=== PATIENT | male | born 1945 | race Caucasian/White ===

== ENCOUNTER 2022-05-11 13:45 | Emergency (ER) | payer OTHER ==
--- OUTSIDE RECORDS SUMMARY | 2022-05-11 13:49 | XMS REPORT | Continuity of Care Document ---
:1945 Author Organization [facility] t Address [address] [place] [address] Care Team Providers Name Role Phone MANJEET RAMIREZ Attending Clinician Unavailable TELLY Attending Clinician Unavailable TELLY Admitting Clinician Unavailable Payers Payer Name Policy Type Policy Number Effective Date Expiration Date S ource MEDICARE B-[place]: [id number] 2011 [employer] 00:00:00 [employer]ET[employer] [id number] 2002 00:00:00 Problems Condition Condition Condition Status Onset Resolution Last Treating Co mments Source Name Details Category Date Date Treatment Clinician Date Hypertensi Hypertensi Problem Active 2021-06 [place] ve ve 0-03 Communi disorder Disorder 00:00: ty 00 [facility] Peripheral Peripheral Problem Active 2021-06 [place] vascular Vascular 0-03 Commun i disease Disease 00:00: ty 00 [facility] Arthritis Arthritis Problem Active 2021-06 Swe garrett 0-03 Communi 00:00: ty 00 [facility] Osteoporos Osteoporos Problem Active 2021-06 [place] is is 0-03 Communi 00:00: ty 00 [facility] Sleep Sleep Problem Active 2021-06 [place] apnea Apnea 0-03 Communi 00:00: ty 00 [facility] Heart Heart Problem Active 2021-06 [place] murmur Murmur 0-03 Communi 00:00: ty 00 [facility] History of History of Problem Active 2021-06 [place] deep vein Deep Vein 0-03 Comm uni thrombosis Thrombosis 00:00: ty 00 [facility] Hyperchole Hyperchole Problem Active 2021-06 S c[place] sterolemia sterolemia 0-03 Co mmuni 00:00: ty 00 [facility] Erectile Erectile Problem Active 2021-06 [place] dysfunctio Dysfunctio 0-03 Co mmuni n n 00:00: ty 00 [facility] Chronic Chronic Problem Active 2021-06 [place] pain Pain 0-03 Communi syndrome Syndrome 00:00: ty 00 [facility] History of History of Problem Active [place] SARS-CoV-2 SARS-CoV-2 9-05 Co mmuni 00:00: ty 00 [facility] Body mass Body Mass Problem Active [place] index 40+ Index 40+ 1-05 Comm uni - severely - Severely 00:00: ty obese Obese 00 [facility] Benign Benign Problem Active [place] prostatic Prostatic 7-14 Comm uni hyperplasi Hyperplasi 00:00: ty a a 00 [facility] Carcinoma Carcinoma Problem Active [place] of of 3-23 Communi prostate Prostate 00:00: ty 00 [facility] Raised Raised Problem Active 2019-06 [place] prostate Prostate 1-09 Commun i specific Specific 00:00: ty antigen Antigen 00 [facility] [id number] Other Problem Common synovitis Spirit and - [facility]osyn[facility] ankle [facility] foot [facility] [id number] Cancer of Problem Comm on prostate Spirit with - [facility] recurrence Medica l risk Center (stage T2b-c or Jennifer 7 or PSA 10-20) [id number] BPH loc w Problem Com mon urin Spirit obs/LUTS - [facility] [id number] Prostate Problem Comm on cancer [facility] [id number] 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 Social History Social Habit Start Date Stop Date Quantity Comments Source History of Tobacco Use Co mmon [facility] Sex Assigned At Com [facility] Smoking Status Start Date Stop Date Source Former Smoker 2022-04-16 00:00:00 2022-04-16 00:00:00 Common S pirit - [facility] Medications Ordered Filled Start Stop Current Ordering Indication Dosage Frequency Signature Comments Components Source Medication Medication Date Date Medication? Clinician (SIG) Name Name Colestipol Colestipol No Colestipol HCl HCl HCl Simvastatin Simvastatin No Simvastati n azelastine azelastine No azelastine [place] 137 mcg 137 mcg 137 mcg Commun i (0.1 %) (0.1 %) (0.1 %) ty nasal spray nasal spray nasal Hospita aerosol aerosol spray l SPRAY 1 SPRAY 1 aerosol Clinic s SPRAYS (137 SPRAYS (137 SPRAY 1 MCG) IN MCG) IN SPRAYS EACH EACH (137 MCG) NOSTRIL BY NOSTRIL BY IN EACH INTRANASAL INTRANASAL NOSTRIL BY ROUTE ONCE ROUTE ONCE INTRANASAL DAILY DAILY ROUTE ONCE NEEDED NEEDED DAILY NEEDED colestipol colestipol No colestipol [place] 1 gram 1 gram 1 gram Communi tablet TAKE tablet TAKE tablet ty 2 TABLETS 2 TABLETS TAKE 2 Hos truong (2 GRAM) BY (2 GRAM) BY TABLETS (2 l ORAL ROUTE ORAL ROUTE GRAM) BY Clinics ONCE PER ONCE PER ORAL ROUTE DAY DAY ONCE PER SWALLOWING SWALLOWING DAY WHOLE WITH WHOLE WITH SWALLOWING ANY LIQUID. ANY LIQUID. WHOLE WITH DO NOT DO NOT ANY CRUSH, CHEW CRUSH, CHEW LIQUID. DO AND/OR AND/OR NOT CRUSH, DIVIDE TO DIVIDE TO CHEW HELP HELP AND/OR CONTROL CONTROL DIVIDE TO BOWELS BOWELS HELP CONTROL BOWELS losartan losartan No 1 Q1D losartan [place] 100 100 100 Communi mg-hydrochl mg-hydrochl mg-hydroch ty orothiazide orothiazide [facility]iazi Hospita 12.5 mg 12.5 mg de 12.5 mg l tablet Take tablet Take tablet Clinics 1 tablet 1 tablet Take 1 every day every day tablet by oral by oral every day route. route. by oral route. meloxicam meloxicam No 1 Q1D meloxicam [place] 15 mg 15 mg 15 mg Communi tablet Take tablet Take tablet ty 1 tablet 1 tablet Take 1 Hospi ta every day every day tablet l by oral by oral every day Clin ics route. route. by oral route. simvastatin simvastatin No 1 Q1D simvastati [place] 40 mg 40 mg n 40 mg Communi tablet Take tablet Take tablet ty 1 tablet 1 tablet Take 1 Hospi ta every day every day tablet l by oral by oral every day Clin ics route in route in by oral the the route in evening. evening. the evening. trazodone trazodone No 1 Q1D trazodone [place] 50 mg 50 mg 50 mg Communi tablet Take tablet Take tablet ty 1 tablet 1 tablet Take 1 Hospi ta every day every day tablet l by oral by oral every day Clin ics route as route as by oral directed. directed. route as directed. azelastine azelastine No azelastine [place] 137 mcg 137 mcg 137 mcg Commun i (0.1 %) (0.1 %) (0.1 %) ty nasal spray nasal spray nasal Hospita aerosol aerosol spray l SPRAY 1 SPRAY 1 aerosol Clinic s SPRAYS (137 SPRAYS (137 SPRAY 1 MCG) IN MCG) IN SPRAYS EACH EACH (137 MCG) NOSTRIL BY NOSTRIL BY IN EACH INTRANASAL INTRANASAL NOSTRIL BY ROUTE ONCE ROUTE ONCE INTRANASAL DAILY DAILY ROUTE ONCE NEEDED NEEDED DAILY NEEDED colestipol colestipol No colestipol [place] 1 gram 1 gram 1 gram Communi tablet TAKE tablet TAKE tablet ty 2 TABLETS 2 TABLETS TAKE 2 Hos truong (2 GRAM) BY (2 GRAM) BY TABLETS (2 l ORAL ROUTE ORAL ROUTE GRAM) BY Clinics ONCE PER ONCE PER ORAL ROUTE DAY DAY ONCE PER SWALLOWING SWALLOWING DAY WHOLE WITH WHOLE WITH SWALLOWING ANY LIQUID. ANY LIQUID. WHOLE WITH DO NOT DO NOT ANY CRUSH, CHEW CRUSH, CHEW LIQUID. DO AND/OR AND/OR NOT CRUSH, DIVIDE TO DIVIDE TO CHEW HELP HELP AND/OR CONTROL CONTROL DIVIDE TO BOWELS BOWELS HELP CONTROL BOWELS losartan losartan No 1 Q1D losartan [place] 100 100 100 Communi mg-hydrochl mg-hydrochl mg-hydroch ty orothiazide orothiazide [facility] 12.5 mg 12.5 mg de 12.5 mg l tablet Take tablet Take tablet Clinics 1 tablet 1 tablet Take 1 every day every day tablet by oral by oral every day route. route. by oral route. meloxicam meloxicam No 1 Q1D meloxicam [place] 15 mg 15 mg 15 mg Communi tablet Take tablet Take tablet ty 1 tablet 1 tablet Take 1 Hospi ta every day every day tablet l by oral by oral every day Clin ics route. route. by oral route. simvastatin simvastatin No 1 Q1D simvastati [place] 40 mg 40 mg n 40 mg Communi tablet Take tablet Take tablet ty 1 tablet 1 tablet Take 1 Hospi ta every day every day tablet l by oral by oral every day Clin ics route in route in by oral the the route in evening. evening. the evening. trazodone trazodone No 1 Q1D trazodone [place] 50 mg 50 mg 50 mg Communi tablet Take tablet Take tablet ty 1 tablet 1 tablet Take 1 Hospi ta every day every day tablet l by oral by oral every day Clin ics route as route as by oral directed. directed. route as directed. cephalexin cephalexin No 1capsul BID cephalexin [place] 500 mg 500 mg e(s) 500 mg Communi capsule capsule capsule ty Take 1 Take 1 Take 1 Hospita capsule capsule capsule l twice a day twice a day twice a Clinics by oral by oral day by route. route. oral route. colestipol colestipol No colestipol [place] 1 gram 1 gram 1 gram Communi tablet TAKE tablet TAKE tablet ty 2 TABLETS 2 TABLETS TAKE 2 Hos truong (2 G TOTAL) (2 G TOTAL) TABLETS (2 l BY MOUTH BY MOUTH G TOTAL) Cli nics DAILY TO DAILY TO BY MOUTH HELP HELP DAILY TO CONTROL CONTROL HELP BOWELS. BOWELS. CONTROL BOWELS. Turmeric Turmeric No Turmeric hydrocodone hydrocodone No hydrocodon [place] 10 10 e 10 Communi mg-acetamin mg-acetamin mg-acetami ty ophen 325 ophen 325 nophen 325 Hospita mg tablet mg tablet mg tablet l Take 1 Take 1 Take 1 Clinics tablet tablet tablet daily by daily by daily by mouth mouth mouth losartan losartan No 1 Q1D losartan [place] 100 100 100 Communi mg-hydrochl mg-hydrochl mg-hydroch ty orothiazide orothiazide [facility] 12.5 mg 12.5 mg de 12.5 mg l tablet Take tablet Take tablet Clinics 1 tablet 1 tablet Take 1 every day every day tablet by oral by oral every day route. route. by oral route. simvastatin simvastatin No 1 Q1D simvastati [place] 40 mg 40 mg n 40 mg Communi tablet Take tablet Take tablet ty 1 tablet 1 tablet Take 1 Hospi ta every day every day tablet l by oral by oral every day Clin ics route in route in by oral the the route in evening. evening. the evening. trazodone trazodone No 1 Q1D trazodone [place] 50 mg 50 mg 50 mg Communi tablet Take tablet Take tablet ty 1 tablet 1 tablet Take 1 Hospi ta every day every day tablet l by oral by oral every day Clin ics route as route as by oral directed. directed. route as directed. losartan losartan No losartan traZODone traZODone No traZODone HCl HCl HCl Vital Signs Vital Name Observation Time Observation Value Comments Source BP Diastolic 2022-04-17 00:00:00 80 mm[Hg] [facility] s Height 2022-04-17 00:00:00 73 [in_i] [facility] s BMI (Body Mass 2022-04-17 00:00:00 37.7 kg/m2 [facility] s BP Systolic 2022-04-17 00:00:00 124 mm[Hg] [facility] s Body Weight 2022-04-17 00:00:00 4576 [oz_av] [facility] s height 2022-04-16 15:00:00 71 [in_i] [facility] weight 2022-04-16 15:00:00 280 [lb_av] [facility] temperature 2022-04-16 15:00:00 97.6 [degF] [facility] bmi 2022-04-16 15:00:00 39.05 kg/m2 [facility] oximetry 2022-04-16 15:00:00 96 % [facility] respiratory rate 2022-04-16 15:00:00 18 /min Comm on [facility] blood pressure 2022-04-16 15:00:00 139 mm[Hg] [facility] - systolic [facility] blood pressure 2022-04-16 15:00:00 88 mm[Hg] [facility] - diastolic [facility] BP Diastolic 2022-03-17 00:00:00 78 mm[Hg] [facility] s Height 2022-03-17 00:00:00 73 [in_i] [facility] s BMI (Body Mass 2022-03-17 00:00:00 39.8 kg/m2 [facility] Index) [facility] s BP Systolic 2022-03-17 00:00:00 142 mm[Hg] [facility] s Body Weight 2022-03-17 00:00:00 4824 [oz_av] [facility] s Procedures Procedure Date / Time Performed Performing Clinician Sour e Appendectomy [facility] Hemorrhoidectomy [facility] Total Knee Replacement [facility] Tonsillectomy [facility] Vasectomy [facility] Plan of Care Planned Activity Planned Date Details Comments Source Diagnostic Test 2022-03-17 CMP, serum or [place] Comm unity Pending 00:00:00 plasma [code = Hospital Clin ics CMP, serum or plasma] Diagnostic Test 2022-03-17 CBC w/ auto diff [facility] Pending 00:00:00 [code = CBC w/ Hospital Clin ics auto diff] Diagnostic Test 2022-03-17 lipid panel, [place] Commu nity Pending 00:00:00 serum [facility], [facility]] Diagnostic Test 2022-03-17 HbA1c (hemoglobin [facility] Pending 00:00:00 A1c), blood [code Hospital linics = HbA1c (hemoglobin A1c), blood] Diagnostic Test 2022-03-17 TSH, serum or [place] Comm unity Pending 00:00:00 plasma [code = Hospital Clin ics TSH, serum or plasma] Future Appointment 2022-06-17 Venkat Lakhani [facility] 00:00:00 Brianna Walters; [place] [address] Encounters Start End Encounter Admission Attending Care Care Encounter Source Date/Time Date/Time Type Type Clinicians Facility Department ID 2022-04-16 Outpatient ELIOT RAMIREZ [facility] [id number] Common 14:36:03 MANJEET Kerns02 [facility] - [facility] 2022-05-11 2022-05-11 Outpatient ERICKSON_R [facility] [address] [place] 00:00:00 00:00:00 [id number] [facility] i [facility] Clin[facility] 2022-04-17 2022-04-17 Outpatient ERICKSON_R [facility] [address] [place] 00:00:00 00:00:00 1103 Commun i ty Hospita l Clinics 2022-04-17 2022-04-17 Manjeet [facility] [place] - [place] [id number] [place] 00:00:00 00:00:00 [facility] - ty DO: [address] [facility] [place], [place] CLINIC, [address] JAMES , Ph. [phone] 2022-04-16 2022-04-16 [facility] [id number] Co mmon 00:00:00 00:00:00 VISIT NEW [facility] it PT LEVEL 3 - [facility] 2022-03-21 2022-03-21 Outpatient ERICKSON_R [facility] [address] [place] 00:00:00 00:00:00 1007 Commun i ty Hospita l Clinics 2022-03-18 2022-03-18 Outpatient ERICKSON_R [facility] [address] [place] 00:00:00 00:00:00 1004 Commun i ty Hospita l Clinics 2022-03-17 2022-03-17 Outpatient ERICKSON_R [facility] [id number] [place] 00:00:00 00:00:00 1003 Commun i ty Hospita l Clinics 2022-03-17 2022-03-17 Manjeet [facility] [place] 00:00:00 00:00:00 [facility] - ty DO: [address] [facility] [place], [place] CLINIC, [address] JAMES , Ph. [phone] Results This patient has no known results.
[2022-05-11 14:38] LABS: Absolute Lymphocytes (CBC) 1.7 K/uL (0.7-4.9); Hematocrit 44.6 % (39.6-49.0); MCV 92.9 fL (80-100); MPV 7.1 fL (7.6-11.3)
[2022-05-11 14:57] LABS: Potassium 3.2 mmol/L (3.5-5.1); Troponin High Sensitivity 27.5 pg/mL (<58.9)
[2022-05-11 15:27] LABS: SARS-COV-2 RT PCR NEGATIVE (NEGATIVE)
--- NOTE | 2022-05-11 16:04 | RAD REPORT ---
EXAM DESCRIPTION: USExtrem Venous W Compress Bil05/11/2022 2:44 pm CLINICAL HISTORY: Leg pain COMPARISON: May 07, 2022 FINDINGS: Echogenic material consistent with thrombus is present within the mid right superficial fe moral vein. The remainder of the right lower extremity deep veins are patent Echogenic material consistent with thrombus is present throughout the left common femoral, left super ficial femoral, left popliteal and left posterior tibial veins. No significant change since prior ult rasound Left greater saphenous vein patent Grayscale, color and spectral analysis performed on all vessels IMPRESSION: Extensive acute left lower extremity deep veinous thrombosis Small amount of acute thrombus mid right superficial femoral vein
--- NOTE | 2022-05-11 16:05 | RAD REPORT ---
EXAM DESCRIPTION: Shaunna Single View05/11/2022 2:52 pm CLINICAL HISTORY: Fever COMPARISON: none FINDINGS: The lungs appear clear of acute infiltrate. The heart appears borderline enlarged IMPRESSION: No acute abnormalities displayed
[2022-05-11 17:01] LABS: Urine Blood Negative (Negative); Urine Glucose Negative (Negative); Urine Protein Negative (Negative)
--- NOTE | 2022-05-11 17:14 | EDPHYS ---
Physician Documentation [facility] Name: Tomas Delaney Age: 77 yrs Sex: Male : 1945 Arrival Date: 05/11/2022 Time: 13:47 Bed 6 Private MD: ED Physician Hammad Fields HPI: 05/11 14:01 This 77 yrs old Male presents to ER via Ambulatory with complaints of Change in jmm symptoms with DVT. Low grade fever, redness in chest/face, irregular heart rate. 14:01 This is a 77-year-old male with a history of atrial fibrillation, hyperlipidemia, jmm hypertension the presents emerged department with complaints of increased fatigue, dizziness approximately a day ago. states that the patient awoke with night sweats. Patient states having some mild left lower quadrant abdominal pain. Patient was also recently diagnosed with a DVT in the left leg. Denies chest pain or shortness of breath, denies back pain.. Historical: - Allergies: 14:00 No Known Allergies; kb3 - PMHx: 14:00 Atrial fibrillation; DVT; Hypercholesterolemia; Hypertensive disorder; IBS; Prostate CA;kb3 - Immunization history:: Adult Immunizations up to date, Client reports receiving the 2nd dose of the Covid vaccine, Last tetanus immunization: up to date. - Social history:: Smoking status: Patient denies any tobacco usage or history of. ROS: 14:01 Cardiovascular: Negative for chest pain, palpitations, and edema. jmm 14:01 Respiratory: Negative for shortness of breath, cough, wheezing, and pleuritic chest pain. 14:01 Constitutional: Positive for body aches, chills, fatigue, fever. 14:01 Abdomen/GI: Positive for abdominal pain. 14:01 MS/extremity: Positive for pain. 14:01 All other systems are negative. Exam: 14:01 Constitutional: This is a well developed, well nourished patient who is awake, alert, jmm and in no acute distress. Head/Face: atraumatic. Eyes: EOMI, no conjunctival erythema appreciated ENT: Moist Mucus Membranes Neck: Trachea midline, Supple Chest/axilla: Normal chest wall appearance and motion. Cardiovascular: Regular rate and rhythm. No edema appreciated Respiratory: Normal respirations, no respiratory distress appreciated Abdomen/GI: Non distended Back: Normal ROM Skin: General appearance color normal 14:01 Musculoskeletal/extremity: swelling noted to the lower extremites bilaterally, full dorsalis pulse, compartments are soft, NVI. 14:01 Skin: Appearance: Color: normal in color. 14:01 Neuro: Motor: is normal. 14:01 Psych: Behavior/mood is pleasant, cooperative. Vital Signs: 13:53 BP 150 / 69; Pulse 90; Resp 20; Temp 98.8; Pulse Ox 99% ; Weight 126.55 kg; Height 6 kb3 ft. 1 in. (185.42 cm); Pain 3/10; 17:28 BP 141 / 60; Pulse 69; Resp 18; Pulse Ox 99% ; ll1 13:53 Body Mass Index 36.81 (126.55 kg, 185.42 cm) kb3 MDM: 14:01 Patient medically screened. [facility] 17:12 Data reviewed: vital signs, nurses notes. Counseling: I had a detailed discussion with [facility] the patient and/or guardian regarding: the historical points, exam findings, and any diagnostic results supporting the discharge/admit diagnosis, the need for outpatient follow up, to return to the emergency department if symptoms worsen or persist or if there are any questions or concerns that arise at home. 05/11 14:01 Order name: Basic Metabolic Panel; Complete Time: 14:57 [facility] 05/11 14:01 Order name: CBC with Diff; Complete Time: 14:41 [facility] 05/11 14:01 Order name: Troponin HS; Complete Time: 14:57 [facility] 05/11 14:01 Order name: Lactate w/ 2H reflex if indic.; Complete Time: 15:05 [facility] 05/11 14:01 Order name: Blood Culture Adult (2) [facility] 05/11 14:30 Order name: COVID-19/FLU A+B; Complete Time: 15:31 [facility] 05/11 14:01 Order name: XRAY Chest (1 view); Complete Time: 16:06 [facility] 05/11 14:01 Order name: EKG; Complete Time: 14:01 [facility] 05/11 14:01 Order name: Cardiac monitoring; Complete Time: 14:29 [facility] 05/11 14:01 Order name: EKG - Nurse/Tech; Complete Time: 14:29 [facility] 05/11 14:01 Order name: IV Saline Lock; Complete Time: 14:29 [facility] 05/11 14:01 Order name: Labs collected and sent; Complete Time: 14:29 [facility] 05/11 14:02 Order name: US Extremity Venous W Compression Margarito; Complete Time: 16:06 [facility] 05/11 17:01 Order name: Urine Dipstick-Ancillary; Complete Time: 17:03 [facility] 05/11 14:01 Order name: O2 Per Protocol; Complete Time: 14:43 [facility] 05/11 14:01 Order name: O2 Sat Monitoring; Complete Time: 14:43 [facility] 05/11 14:30 Order name: Urine Dipstick-Ancillary (obtain specimen); Complete Time: 17:00 [facility] Administered Medications: No medications were administered Disposition: 17:12 Co-signature as Attending Physician, Hammad Fields DO I was immediately available on-site ms3 in the Emergency Department for consultation in the care of the patient. Disposition Summary: 05/11/22 17:13 Discharge Ordered Location: Home [facility] Condition: Stable [facility] Diagnosis - [place] jm Followup: [facility] - With: Private Physician - When: 2 - 3 days - Reason: Recheck today's complaints, Continuance of care, Re-evaluation by your physician Discharge Instructions: - Discharge Summary Sheet jm - Deep Vein Thrombosis [facility] Forms: - Medication Reconciliation Form [facility] - Thank You Letter [facility] - Antibiotic Education [facility] - Prescription Opioid Use [facility] Signatures: Dispatcher [employer] Maciej Copeland PA PA jmm Sims, Marcus, DO DO ms3 Claudine Griffin, RN RN kb3
--- NOTE | 2022-05-11 17:14 | ER ---
Nurse's Notes [facility] Name: Tomas Delaney Age: 77 yrs Sex: Male : 1945 Arrival Date: 05/11/2022 Time: 13:47 Bed 6 Private MD: Diagnosis: [place] Presentation: 05/11 13:53 Chief complaint: Patient states: Pt reports he was started on Eliquis by Dr Bishop on kb3 Wed for afib and a DVT was found in right leg. States he woke up this morning with bilateral lower leg pain, felt dizzy and fatigued, flushed with a low-grade temp, and LLQ abdominal pain at 12:00 that has resolved. Coronavirus screen: Vaccine status: Patient reports receiving the 2nd dose of the covid vaccine. Client denies travel out of the [place] in the last 14 days. Ebola Screen: Patient negative for fever greater than or equal to 101.5 degrees Fahrenheit, and additional compatible Ebola Virus Disease symptoms Patient denies exposure to infectious person. Patient denies travel to an Ebola-affected area in the 21 days before illness onset. Initial Sepsis Screen: Does the patient meet any 2 criteria? No. Patient's initial sepsis screen is negative. Does the patient have a suspected source of infection? No. Patient's initial sepsis screen is negative. Risk Assessment: Do you want to hurt yourself or someone else? Patient reports no desire to harm self or others. Onset of symptoms was May 11, 2022 at 08:00. 13:53 Method Of Arrival: Ambulatory 3 13:53 Acuity: CONNOR 3 kb3 Triage Assessment: 14:00 General: Appears in no apparent distress. Behavior is calm, cooperative. Pain: kb3 Complains of pain in lateral aspect of right calf, right calf, medial aspect of right calf, right shah, lateral aspect of left calf, left calf, medial aspect of left calf and left shah Pain does not radiate. Pain currently is 3 out of 10 on a pain scale. Historical: - Allergies: 14:00 No Known Allergies; kb3 - PMHx: 14:00 Atrial fibrillation; DVT; Hypercholesterolemia; Hypertensive disorder; IBS; Prostate CA;kb3 - Immunization history:: Adult Immunizations up to date, Client reports receiving the 2nd dose of the Covid vaccine, Last tetanus immunization: up to date. - Social history:: Smoking status: Patient denies any tobacco usage or history of. Screenin:44 Abuse screen: Denies threats or abuse. Nutritional screening: No deficits noted. ll1 Tuberculosis screening: No symptoms or risk factors identified. Fall Risk IV access (20 points). Gait- Impaired (20 pts.). Total Avilez Fall Scale indicates Low Risk Score (25-44 pts). Fall prevention measures have been instituted. Side Rails Up X 2 Placed close to Nursing Station Frequent Obs/Assesments occuring Family Present and informed to notify staff if they need to leave bedside As available Patient and Family Educated on Fall Prevention Program and strategies. Assessment: 14:43 Reassessment: No changes from previously documented assessment. Patient and/or family ll1 updated on plan of care and expected duration. Pain level reassessed. Patient is alert, oriented x 3, equal unlabored respirations, skin warm/dry/pink. 15:40 Reassessment: No changes from previously documented assessment. ll1 16:35 Reassessment: No changes from previously documented assessment. Patient and/or family ll1 updated on plan of care and expected duration. Pain level reassessed. 17:27 Reassessment: No changes from previously documented assessment. Patient and/or family ll1 updated on plan of care and expected duration. Pain level reassessed. Patient is alert, oriented x 3, equal unlabored respirations, skin warm/dry/pink. Vital Signs: 13:53 BP 150 / 69; Pulse 90; Resp 20; Temp 98.8; Pulse Ox 99% ; Weight 126.55 kg; Height 6 kb3 ft. 1 in. (185.42 cm); Pain 3/10; 17:28 BP 141 / 60; Pulse 69; Resp 18; Pulse Ox 99% ; ll1 13:53 Body Mass Index 36.81 (126.55 kg, 185.42 cm) kb3 ED Course: 13:47 Patient arrived in ED. jl7 13:47 Maciej Fragoso PA is PHCP. [facility] 13:47 Hammad Fields DO is Attending Physician. jmm 14:00 Triage completed. kb3 14:00 Arm band placed on right wrist. kb3 14:25 Inserted saline lock: 22 gauge in left antecubital area, using aseptic technique. Blood ll1 collected. 14:29 Lactate w/ 2H reflex if indic. Sent. ll1 14:46 US Extremity Venous W Compression Margarito In Process Unspecified. EDMS 14:49 Juma Elliott, RN is Primary Nurse. ll1 14:53 XRAY Chest (1 view) In Process Unspecified. EDMS 15:16 COVID-19/FLU A+B Sent. ll1 17:28 No provider procedures requiring assistance completed. IV discontinued, intact, ll1 bleeding controlled, No redness/swelling at site. Pressure dressing applied. 17:29 Patient has correct armband on for positive identification. Bed in low position. Call ll1 light in reach. Side rails up X2. Cardiac monitoring not applicable on this patient. Administered Medications: No medications were administered Medication: 14:44 VIS not applicable for this client. 1 Outcome: 17:13 Discharge ordered by . [facility] 17:29 Discharged to home via wheelchair. ll1 17:29 Condition: stable 17:29 Discharge instructions given to patient, family, Instructed on discharge instructions, follow up and referral plans. Demonstrated understanding of instructions, follow-up care. 17:29 Patient left the ED. 1 Signatures: Dispatcher [employer] EDMS Maciej Fragoso PA PA jmm Leal, Jahala, RN RN jl7 Juma Elliott, RN RN ll1 Claudine Griffin, RN RN kb3
[2022-05-11 17:45] VITALS: TEMP 98.8; O2SAT 99
[2022-05-11 17:55] VITALS: BP 141/60
--- NOTE | 2022-05-12 12:50 | EKG ---
Test Date: 2022-05-11 Test Time: 14:38:46 Hydrographic Surveyor: LML MEASUREMENT RESULTS: Intervals: Rate: 82 [place]: QRSD: 158 QT: 436 QTc: 509 [place]: P: [place]: QRS: -30 T: 41 INTERPRETIVE STATEMENTS: Atrial fibrillation Left axis deviation Nonspecific intraventricular block Abnormal ECG Compared to ECG 02/24/2013 18:11:59 Sinus rhythm no longer present First degree AV block no longer present Intraventricular conduction delay no longer present Electronically Signed On 05-12-22 12:49:05 LAST MODEL DEPARTMENT SUPERVISOR by Graham Maria
== END 2022-05-11 17:29 | disposition home or self-care (01) ==
LOC: ER 13:45
DX: R23.2 Flushing (principal); I10 Essential (primary) hypertension; I48.91 Unspecified atrial fibrillation; Z79.01 Long term (current) use of anticoagulants; Z86.718 Personal history of other venous thrombosis and embolism; Z85.46 Personal history of malignant neoplasm of prostate; Z20.822 Contact with and (suspected) exposure to COVID-19
CPT/HCPCS: 93005; 87040; 85025; 80048; 36415; 83605; 81003; 84484; 0240U; 71045; 93970; 99283

== ENCOUNTER 2022-08-03 08:38 | Emergency (ER) | payer OTHER ==
--- OUTSIDE RECORDS SUMMARY | 2022-08-03 08:42 | XMS REPORT | Continuity of Care Document ---
:1945 Author Organization [facility] t Address [address] [place] [address] Care Team Providers Name Role Phone MANJEET RAMIREZ Attending Clinician Unavailable TELLY Attending Clinician Unavailable TELLY Admitting Clinician Unavailable Payers Payer Name Policy Type Policy Number Effective Date Expiration Date Cedric franklin FRANCISCO (PPO) [id number] 2022 00:00:00 MEDICARE [place]: [id number] 2011 langtaojin 00:00:00 AETNA [id number] 2002 00:00:00 Problems Condition Condition Condition Status Onset Resolution Last Treating Co mments Source Name Details Category Date Date Treatment Clinician Date Atrial Atrial Problem Active 2021-06 [facility] fibrillati Fibrillati 1-29 Co mmuni on on 00:00: ty 00 [facility] Hypertensi Hypertensi Problem Active 2021-06 S weeny ve ve 0-03 Communi disorder Disorder 00:00: ty 00 [facility] Peripheral Peripheral Problem Active 2021-06 S [facility]en[facility] vascular Vascular 0-03 Commun i disease Disease 00:00: ty 00 [facility] Arthritis Arthritis Problem Active 2021-06 Swe garrett 0-03 Communi 00:00: ty 00 [facility] Osteoporos Osteoporos Problem Active 2021-06 S ween[facility] is is 0-03 Communi 00:00: ty 00 [facility] Sleep Sleep Problem Active 2021-06 [facility] apnea Apnea 0-03 Communi 00:00: ty 00 [facility] Heart Heart Problem Active 2021-06 [place] murmur Murmur 0-03 Communi 00:00: ty 00 [facility] History of History of Problem Active 2021-06 S weencristopher deep vein Deep Vein 0-03 Comm uni thrombosis Thrombosis 00:00: ty 00 [facility] Hyperchole Hyperchole Problem Active 2021-06 S [facility]en[facility] sterolemia sterolemia 0-03 Co mmuni 00:00: ty 00 [facility] Erectile Erectile Problem Active 2021-06 Sween y dysfunctio Dysfunctio 0-03 Co mmuni n n 00:00: ty 00 [facility] Chronic Chronic Problem Active 2021-06 [facility] pain Pain 0-03 Communi syndrome Syndrome 00:00: ty 00 [facility] History of History of Problem Active S weeny SARS-CoV-2 SARS-CoV-2 9-05 Co mmuni 00:00: ty 00 [facility] Body mass Body Mass Problem Active Swe garrett index 40+ Index 40+ 1-05 Comm uni - severely - Severely 00:00: ty obese Obese 00 [facility] Benign Benign Problem Active [facility] prostatic Prostatic 7-14 Comm uni hyperplasi Hyperplasi 00:00: ty a a 00 [facility] Carcinoma Carcinoma Problem Active Swe garrett of of 3-23 Communi prostate Prostate 00:00: ty 00 [facility] Raised Raised Problem Active 2019-06 [facility] prostate Prostate 1-09 Commun i specific Specific 00:00: ty antigen Antigen 00 [facility] [id number] Other Problem Common synovitis Spirit and [facility] tenosynovi [facility] ankle and Medical foot [place] [id number] Cancer of Problem Comm on prostate [facility] with [facility] intermedia [facility] recurrence Medica l risk Center (stage T2b-c or [place] 7 or PSA 10-20) [id number] BPH loc w Problem Com mon urin Spirit obs/LUTS - [facility] [id number] Prostate Problem Comm on cancer [facility] - [facility] [id number] 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 Social History Social Habit Start Date Stop Date Quantity Comments Source History of Tobacco Use Co mmon [facility] Sex Assigned At Com juan miguel [facility] Smoking Status Start Date Stop Date Source Former Smoker 2022-07-09 00:00:00 2022-07-09 00:00:00 Common S [facility] Medications Ordered Filled Start Stop Current Ordering Indication Dosage Frequency Signature Comments Components Source Medication Medication Date Date Medication? Clinician (SIG) Name Name Eliquis 5 Eliquis 5 No Eliquis 5 [facility] mg tablet mg tablet mg tablet Communi Take 1 Take 1 Take 1 ty tablet BID tablet BID tablet BID Hospita PO PO PO l Clinics hydrochloro hydrochloro No 1 Q1D hydrochlor [facility] thiazide thiazide othiazide Co mmuni 12.5 mg 12.5 mg 12.5 mg ty tablet Take tablet Take tablet Hospita 1 tablet 1 tablet Take 1 l every day every day tablet Cli nics by oral by oral every day route. route. by oral route. hydrocodone hydrocodone No 1 Q6H hydrocodon [facility] 10 10 e 10 Communi mg-acetamin mg-acetamin mg-acetami ty ophen 300 ophen 300 nophen 300 Hospita mg tablet mg tablet mg tablet l Take 1 Take 1 Take 1 Clinics tablet tablet tablet every 6 every 6 every 6 hours by hours by hours by oral route. oral route. oral route. losartan losartan No losartan Swe garrett 100 100 100 Communi mg-hydrochl mg-hydrochl mg-hydroch ty orothiazide orothiazide lorothiazi Hospita 12.5 mg 12.5 mg de 12.5 mg l tablet Take tablet Take tablet Clinics 1 tablet 1 tablet Take 1 every day every day tablet by oral by oral every day route. route. by oral route. potassium potassium No potassium [facility] chloride ER chloride ER chloride Communi 20 mEq 20 mEq ER 20 mEq ty tablet,exte tablet,exte tablet,ext Hospita nded nded ended l release(par release(par release([facility] t/cryst) t/cryst) rt/cryst) Take 1 Take 1 Take 1 tablet tablet tablet daily by daily by daily by mouth mouth mouth simvastatin simvastatin No simvastati [place] 40 mg 40 mg n 40 mg Communi tablet TAKE tablet TAKE tablet ty 1 TABLET BY 1 TABLET BY TAKE 1 Hospita MOUTH EVERY MOUTH EVERY TABLET BY l DAY AT DAY AT MOUTH Clinics NIGHT NIGHT EVERY DAY AT NIGHT trazodone trazodone No trazodone [facility] 50 mg 50 mg 50 mg Communi tablet TAKE tablet TAKE tablet ty 1 TABLET BY 1 TABLET BY TAKE 1 Hospita MOUTH MOUTH TABLET BY l EVERYDAY AT EVERYDAY AT MOUTH Clinics BEDTIME BEDTIME EVERYDAY AT BEDTIME colestipol colestipol No colestipol [facility] 1 gram 1 gram 1 gram Communi tablet tablet tablet ty PLEASE SEE PLEASE SEE PLEASE SEE Hospita ATTACHED ATTACHED ATTACHED l FOR FOR FOR Clinics DETAILED DETAILED DETAILED DIRECTIONS DIRECTIONS DIRECTIONS Eliquis 5 Eliquis 5 No Eliquis 5 [facility] mg tablet mg tablet mg tablet Communi Take 1 Take 1 Take 1 ty tablet BID tablet BID tablet BID Hospita PO PO PO l Clinics hydrochloro hydrochloro No hydrochlor [place] thiazide thiazide othiazide Co mmuni 12.5 mg 12.5 mg 12.5 mg ty tablet TAKE tablet TAKE tablet Hospita 1 TABLET BY 1 TABLET BY TAKE 1 l MOUTH EVERY MOUTH EVERY TABLET BY Clinics DAY DAY MOUTH EVERY DAY losartan losartan No losartan Swe garrett 100 100 100 Communi mg-hydrochl mg-hydrochl mg-hydroch ty orothiazide orothiazide lorothiazi Hospita 12.5 mg 12.5 mg de 12.5 mg l tablet Take tablet Take tablet Clinics 1 tablet 1 tablet Take 1 every day every day tablet by oral by oral every day route. route. by oral route. potassium potassium No potassium [place] chloride ER chloride ER chloride Communi 20 mEq 20 mEq ER 20 mEq ty tablet,exte tablet,exte tablet,ext Hospita nded nded ended l release(par release(par release([facility] t/cryst) t/cryst) rt/cryst) Take 1 Take 1 Take 1 tablet tablet tablet daily by daily by daily by mouth mouth mouth simvastatin simvastatin No simvastati [facility] 40 mg 40 mg n 40 mg Communi tablet TAKE tablet TAKE tablet ty 1 TABLET BY 1 TABLET BY TAKE 1 Hospita MOUTH EVERY MOUTH EVERY TABLET BY l DAY AT DAY AT MOUTH Clinics NIGHT NIGHT EVERY DAY AT NIGHT trazodone trazodone No trazodone [facility] 50 mg 50 mg 50 mg Communi tablet TAKE tablet TAKE tablet ty 1 TABLET BY 1 TABLET BY TAKE 1 Hospita MOUTH MOUTH TABLET BY l EVERYDAY AT EVERYDAY AT MOUTH Clinics BEDTIME BEDTIME EVERYDAY AT BEDTIME azelastine azelastine No azelastine [facility] 137 mcg 137 mcg 137 mcg Commun i (0.1 %) (0.1 %) (0.1 %) ty nasal spray nasal spray nasal [facility] aerosol aerosol spray l SPRAY 1 SPRAY 1 aerosol Clinic s SPRAYS (137 SPRAYS (137 SPRAY 1 MCG) IN MCG) IN SPRAYS EACH EACH (137 MCG) NOSTRIL BY NOSTRIL BY IN EACH INTRANASAL INTRANASAL NOSTRIL BY ROUTE ONCE ROUTE ONCE INTRANASAL DAILY DAILY ROUTE ONCE NEEDED NEEDED DAILY NEEDED colestipol colestipol No colestipol [facility] 1 gram 1 gram 1 gram Communi [...] route. meloxicam meloxicam No 1 Q1D meloxicam [facility] 15 mg 15 mg 15 mg Communi tablet Take tablet Take tablet ty 1 tablet 1 tablet Take 1 Hospi ta every day every day tablet l by oral by oral every day Clin ics route. route. by oral route. simvastatin simvastatin No 1 Q1D simvastati [facility] 40 mg 40 mg n 40 mg Communi tablet Take tablet Take tablet ty 1 tablet 1 tablet Take 1 Hospi ta every day every day tablet l by oral by oral every day Clin ics route in route in by oral the the route in evening. evening. the evening. trazodone trazodone No 1 Q1D trazodone [facility] 50 mg 50 mg 50 mg Communi tablet Take tablet Take tablet ty 1 tablet 1 tablet Take 1 Hospi ta every day every day tablet l by oral by oral every day Clin ics route as route as by oral directed. directed. route as directed. azelastine azelastine No azelastine [facility] 137 mcg 137 mcg 137 mcg Commun [...] NEEDED DAILY NEEDED colestipol colestipol No colestipol [facility] 1 gram 1 gram 1 gram Communi [...] route. meloxicam meloxicam No 1 Q1D meloxicam [facility] 15 mg 15 mg 15 mg Communi tablet Take tablet Take tablet ty 1 tablet 1 tablet Take 1 Hospi ta every day every day tablet l by oral by oral every day Clin ics route. route. by oral route. simvastatin simvastatin No 1 Q1D simvastati [facility] 40 mg 40 mg n 40 mg Communi tablet Take tablet Take tablet ty 1 tablet 1 tablet Take 1 Hospi ta every day every day tablet l by oral by oral every day Clin ics route in route in by oral the the route in evening. evening. the evening. trazodone trazodone No 1 Q1D trazodone [facility] 50 mg 50 mg 50 mg Communi tablet Take tablet Take tablet ty 1 tablet 1 tablet Take 1 Hospi ta every day every day tablet l by oral by oral every day Clin ics route as route as by oral directed. directed. route as directed. cephalexin cephalexin No 1capsul BID cephalexin [facility] 500 mg 500 mg e(s) 500 mg Communi capsule capsule capsule ty Take 1 Take 1 Take 1 Hospita capsule capsule capsule l twice a day twice a day twice a Clinics by oral by oral day by route. route. oral route. colestipol colestipol No colestipol [facility] 1 gram 1 gram 1 gram Communi tablet TAKE tablet TAKE tablet ty 2 TABLETS 2 TABLETS TAKE 2 Hos truong (2 G TOTAL) (2 G TOTAL) TABLETS (2 l BY MOUTH BY MOUTH G TOTAL) Cli nics DAILY TO DAILY TO BY MOUTH HELP HELP DAILY TO CONTROL CONTROL HELP BOWELS. BOWELS. CONTROL BOWELS. hydrocodone hydrocodone No hydrocodon [facility] 10 10 e 10 Communi mg-acetamin mg-acetamin [...] every day route. route. by oral route. Turmeric Turmeric No Turmeric simvastatin simvastatin No 1 Q1D simvastati [facility] 40 mg 40 mg n 40 mg Communi tablet Take tablet Take tablet ty 1 tablet 1 tablet Take 1 Hospi ta every day every day tablet l by oral by oral every day Clin ics route in route in by oral the the route in evening. evening. the evening. trazodone trazodone No 1 Q1D trazodone [facility] 50 mg 50 mg 50 mg Communi tablet Take tablet Take tablet ty 1 tablet 1 tablet Take 1 Hospi ta every day every day tablet l by oral by oral every day Clin ics route as route as by oral directed. directed. route as directed. losartan losartan No losartan traZODone traZODone No traZODone HCl HCl HCl Colestipol Colestipol No Colestipol HCl HCl HCl Simvastatin Simvastatin No Simvastati n traZODone traZODone No traZODone HCl HCl HCl Colestipol Colestipol No Colestipol HCl HCl HCl Simvastatin Simvastatin No Simvastati n Turmeric Turmeric No Turmeric losartan losartan No losartan colestipol colestipol No colestipol [facility] 1 gram 1 gram 1 gram Communi tablet tablet tablet ty PLEASE SEE PLEASE SEE PLEASE SEE Hospita ATTACHED ATTACHED ATTACHED l FOR FOR FOR Clinics DETAILED DETAILED DETAILED DIRECTIONS DIRECTIONS DIRECTIONS Eliquis 5 Eliquis 5 No Eliquis 5 [facility] mg tablet mg tablet mg tablet Communi Take 1 Take 1 Take 1 ty tablet BID tablet BID tablet BID Hospita PO PO PO l Clinics hydrochloro hydrochloro No 1 Q1D hydrochlor [facility] thiazide thiazide othiazide Co mmuni 12.5 mg 12.5 mg 12.5 mg ty tablet Take tablet Take tablet Hospita 1 tablet 1 tablet Take 1 l every day every day tablet Cli nics by oral by oral every day route. route. by oral route. hydrocodone hydrocodone No 1 Q6H hydrocodon [facility] 10 10 e 10 Communi mg-acetamin mg-acetamin mg-acetami ty ophen 300 ophen 300 nophen 300 Hospita mg tablet mg tablet mg tablet l Take 1 Take 1 Take 1 Clinics tablet tablet tablet every 6 every 6 every 6 hours by hours by hours by oral route. oral route. oral route. losartan losartan No losartan Swe garrett 100 100 100 Communi mg-hydrochl mg-hydrochl mg-hydroch ty orothiazide orothiazide lorothiazi Hospita 12.5 mg 12.5 mg de 12.5 mg l tablet Take tablet Take tablet Clinics 1 tablet 1 tablet Take 1 every day every day tablet by oral by oral every day route. route. by oral route. potassium potassium No potassium [facility] chloride ER chloride ER chloride Communi 20 mEq 20 mEq ER 20 mEq ty tablet,exte tablet,exte tablet,ext Hospita nded nded ended l release(par release(par release(pa Clinics t/cryst) t/cryst) rt/cryst) Take 1 Take 1 Take 1 tablet tablet tablet daily by daily by daily by mouth mouth mouth simvastatin simvastatin No simvastati [facility] 40 mg 40 mg n 40 mg Communi tablet TAKE tablet TAKE tablet ty 1 TABLET BY 1 TABLET BY TAKE 1 Hospita MOUTH EVERY MOUTH EVERY TABLET BY l DAY AT DAY AT MOUTH Clinics NIGHT NIGHT EVERY DAY AT NIGHT trazodone trazodone No trazodone [facility] 50 mg 50 mg 50 mg Communi tablet TAKE tablet TAKE tablet ty 1 TABLET BY 1 TABLET BY TAKE 1 Hospita MOUTH MOUTH TABLET BY l EVERYDAY AT EVERYDAY AT MOUTH Clinics BEDTIME BEDTIME EVERYDAY AT BEDTIME colestipol colestipol No colestipol [facility] 1 gram 1 gram 1 gram Communi tablet tablet tablet ty PLEASE SEE PLEASE SEE PLEASE SEE Hospita ATTACHED ATTACHED ATTACHED l FOR FOR FOR Clinics DETAILED DETAILED DETAILED DIRECTIONS DIRECTIONS DIRECTIONS Vital Signs Vital Name Observation Time Observation Value Comments Source BP Diastolic 2022-07-17 00:00:00 84 mm[Hg] [facility] Height 2022-07-17 00:00:00 73 [in_i] [facility] s BMI (Body Mass 2022-07-17 00:00:00 38 kg/m2 [facility] s BP Systolic 2022-07-17 00:00:00 140 mm[Hg] [facility] s Body Weight 2022-07-17 00:00:00 4608 [oz_av] [facility] s height 2022-07-09 09:45:00 71 [in_i] Common [facility] weight 2022-07-09 09:45:00 285.2 [lb_av] Common [facility] temperature 2022-07-09 09:45:00 97.6 [degF] Common [facility] bmi 2022-07-09 09:45:00 39.77 kg/m2 [facility] oximetry 2022-07-09 09:45:00 95 % [facility] respiratory rate 2022-07-09 09:45:00 16 /min Comm on [facility] blood pressure 2022-07-09 09:45:00 154 mm[Hg] [facility] - systolic [facility] blood pressure 2022-07-09 09:45:00 74 mm[Hg] [facility] - diastolic [facility] BP Diastolic 2022-06-17 00:00:00 84 mm[Hg] [facility] Height 2022-06-17 00:00:00 73 [in_i] [facility] s BMI (Body Mass 2022-06-17 00:00:00 37.7 kg/m2 [facility]) [facility] BP Systolic 2022-06-17 00:00:00 154 mm[Hg] [facility] s Body Weight 2022-06-17 00:00:00 4576 [oz_av] [facility] s BP Diastolic 2022-04-17 00:00:00 80 mm[Hg] [facility] Height 2022-04-17 00:00:00 73 [in_i] [facility] s BMI (Body Mass 2022-04-17 00:00:00 37.7 kg/m2 [facility]) [facility] s BP Systolic 2022-04-17 00:00:00 124 mm[Hg] [facility] s Body Weight 2022-04-17 00:00:00 4576 [oz_av] [facility] height 2022-04-16 15:00:00 71 [in_i] [facility] weight 2022-04-16 15:00:00 280 [lb_av] [facility] temperature 2022-04-16 15:00:00 97.6 [degF] [facility] bmi 2022-04-16 15:00:00 39.05 kg/m2 [facility] oximetry 2022-04-16 15:00:00 96 % Common S [facility] respiratory rate 2022-04-16 15:00:00 18 /min Comm on [facility] blood pressure 2022-04-16 15:00:00 139 mm[Hg] [facility] - systolic [facility] blood pressure 2022-04-16 15:00:00 88 mm[Hg] [facility] - diastolic [facility] BP Diastolic 2022-03-17 00:00:00 78 mm[Hg] [facility] s Height 2022-03-17 00:00:00 73 [in_i] [facility] s BMI (Body Mass 2022-03-17 00:00:00 39.8 kg/m2 [facility]) [facility] s BP Systolic 2022-03-17 00:00:00 142 mm[Hg] [facility] s Body Weight 2022-03-17 00:00:00 4824 [oz_av] [facility] s Procedures Procedure Date / Time Performed Performing Clinician Sour e Appendectomy [facility] Hemorrhoidectomy [facility] Total Knee Replacement [facility] Tonsillectomy [facility] Vasectomy [facility] Plan of Care Planned Activity Planned Date Details Comments Source Diagnostic Test 2022-03-17 CMP, serum or [facility] Comm unity Pending 00:00:00 plasma [code = Hospital Clin ics CMP, serum or plasma] Diagnostic Test 2022-03-17 CBC w/ auto diff [facility] Pending 00:00:00 [code = CBC w/ Hospital Clin ics auto diff] Diagnostic Test 2022-03-17 lipid panel, [facility] Commu nity Pending 00:00:00 serum [code = [facility] lipid panel, serum] Diagnostic Test 2022-03-17 HbA1c (hemoglobin [facility] Pending 00:00:00 A1c), blood [code Hospital C linics = HbA1c (hemoglobin A1c), blood] Diagnostic Test 2022-03-17 TSH, serum or [facility] Comm unity Pending 00:00:00 plasma [code = Hospital Clin ics TSH, serum or plasma] Future Appointment 2022-10-13 [facility] [address]; [facility], [place] [address] Encounters Start End Encounter Admission Attending Care Care Encounter Source Date/Time Date/Time Type Type Clinicians Facility Department ID 2022-07-02 Outpatient ELIOT RAMIREZ [facility] [id number] 02 Common 16:38:01 MANJEET [id number] [facility] 2022-06-17 Outpatient ELIOT RAMIREZ [facility] [id number] 02 Common 11:02:02 MANJEET [id number] [facility] 2022-04-[address] [facility] [id number] 02 Common 14:36:03 MANJEET [id number] [facility] 2022-07-30 2022-07-30 Outpatient ERCASANDRAON_R [facility] [id number] [place] 00:00:00 00:00:00 [id number] Commun i ty Hospita l [facility] 2022-07-17 2022-07-17 [facility] [facility] 00:00:00 00:00:00 [facility] DO: [address] a [facility], HOSPITAL Clinic s [place], [place] CLINIC, [address] JAMES , Ph. [phone] 2022-07-09 2022-07-[address] [facility] [id number] Co mmon 00:00:00 00:00:00 VISIT EST Spir it PT LEVEL [address] [place] [address] 2022-06-17 2022-06-17 Outpatient ERICKSON_R [facility] [id number] [place] 00:00:00 00:00:00 [id number] Commun i ty Hospita l Clinics 2022-06-17 2022-06-17 Outpatient ERICKSON_R [facility] [id number] [place] 00:00:00 00:00:00 [id number] Commun i ty Hospita l Clinics 2022-06-17 2022-06-17 Manjeet [facility] [place] [facility] [place] 00:00:00 00:00:00 [facility] ty DO: [address] Hospit a [facility], HOSPITAL [place], [place] CLINIC, [address] JAMES , Ph. [phone] 2022-05-11 2022-05-11 Outpatient ERICKSON_R [facility] [id number] [place] 00:00:00 00:00:00 [id number] Commun i ty Hospita l Clinics 2022-04-17 2022-04-17 Outpatient ERICKSON_R [facility] [id number] [place] 00:00:00 00:00:00 [id number] Commun i ty Hospita l Clinics 2022-04-17 2022-04-17 Manjeet [facility] [place] [facility] [place] [id number] [place] 00:00:00 00:00:00 [facility] - DO: [address] Hospit [facility], HOSPITAL [place], [place] CLINIC, [address] JAMES , Ph. 2022-04-16 2022-04-[address] [facility] [id number] Co mmon 00:00:00 00:00:00 VISIT [facility] PT LEVEL 3 - [facility] 2022-03-21 2022-03-21 Outpatient ERICKSON_R [facility] [id number] [place] 00:00:00 00:00:00 [id number] Commun i ty Hospita l Clinics 2022-03-18 2022-03-18 Outpatient ERICKSON_R [facility] [id number] [place] 00:00:00 00:00:00 [id number] Commun i ty Hospita l Clinics 2022-03-17 2022-03-17 Outpatient ERICKSON_R [facility] [id number] [place] 00:00:00 00:00:00 [id number] Commun i ty Hospita l Clinics 2022-03-17 2022-03-17 [facility] [place] [id number] 00:00:00 00:00:00 [facility]: [address] Hospit a [facility] [address], HOSPITAL Clinic s [place], [facility], [address] JAMES , Ph. [phone] Results This patient has no known results.
--- NOTE | 2022-08-03 09:21 | ER ---
Nurse's Notes [facility] Name: Tomas Delaney Age: 77 yrs Sex: Male : 1945 Arrival Date: 08/03/2022 Time: 08:41 Bed 19 Private MD: Duncan Chacko Diagnosis: Cellulitis of right lower limb;Edema, unspecified-Bilateral lower extremities Presentation: 08/03 08:56 Chief complaint: Patient states: laceration to right leg a few days ago, the leg has iw been swollen before but now its red too, is on lasix for leg swelling nd is due for aortic valve replacement next month. Coronavirus screen: At this time, the client does not indicate any symptoms associated with coronavirus-19. Ebola Screen: Patient negative for fever greater than or equal to 101.5 degrees Fahrenheit, and additional compatible Ebola Virus Disease symptoms Patient denies exposure to infectious person. Patient denies travel to an Ebola-affected area in the 21 days before illness onset. No symptoms or risks identified at this time. Onset of symptoms was August 03, 2022. 08:56 Method Of Arrival: Ambulatory iw 08:56 Acuity: CONNOR 3 iw 10:08 Initial Sepsis Screen: Does the patient meet any 2 criteria? No. Patient's initial kr3 sepsis screen is negative. Does the patient have a suspected source of infection? No. Patient's initial sepsis screen is negative. Risk Assessment: Do you want to hurt yourself or someone else? Patient reports no desire to harm self or others. Triage Assessment: 09:15 General: Appears in no apparent distress. uncomfortable, Behavior is calm, cooperative, kr3 appropriate for age. Pain: Complains of pain in right leg. EENT: No signs and/or symptoms were reported regarding the EENT system. Neuro: Level of Consciousness is awake, alert, obeys commands, Oriented to person, place, time, situation. Cardiovascular: No deficits noted. Respiratory: Airway is patent Respiratory effort is even, unlabored, Respiratory pattern is regular, symmetrical. GI: No signs and/or symptoms were reported involving the gastrointestinal system. : No signs and/or symptoms were reported regarding the genitourinary system. Derm: No signs and/or symptoms reported regarding the dermatologic system. Musculoskeletal: No signs and/or symptoms reported regarding the musculoskeletal system. Historical: - Allergies: 09:01 Neosporin ([id number]); iw - Home Meds: 08:59 losartan-hydrochlorothiazide 100-12.5 mg oral tab 1 tab once daily [Active]; colestipol iw oral 2 times per day [Active]; potassium chloride 20 mEq Oral TbER 1 tab once daily [Active]; Eliquis 5 mg oral tab 1 tab 2 times per day [Active]; hydrocodone-acetaminophen 10-325 mg Oral tab [Active]; trazodone 50 mg Oral tab 1 tab once daily [Active]; Furosemide Oral [Active]; - PMHx: 08:58 Atrial fibrillation; DVT; Hypercholesterolemia; Hypertensive disorder; ibs; PROSTATE CA;iw - Immunization history:: Adult Immunizations unknown. - Social history:: Smoking status: unknown. Screenin:05 [facility] ED Fall Risk Assessment (Adult) History of falling in the last 3 months, kr3 including since admission No falls in past 3 months (0 pts) Confusion or Disorientation No (0 pts) Intoxicated or Sedated No (0 pts) Impaired Gait No (0 pts) Mobility Assist Device Used No (0 pt) Altered Elimination No (0 pt) Score/Fall Risk Level 0 - 2 = Low Risk Oriented to surroundings, Maintained a safe environment, Educated pt \T\ family on fall prevention, incl call for assistance when getting out of bed, Assessed \T\ reinforced patient's understanding of fall precautions, Hourly rounding (assess needs \T\ fall precautionary measures) done. Abuse screen: Denies threats or abuse. Nutritional screening: No deficits noted. Tuberculosis screening: No symptoms or risk factors identified. Assessment: 09:46 Reassessment:. Reassessment: Patient appears in no apparent distress at this time. kr3 Patient and/or family updated on plan of care and expected duration. Pain level reassessed. Patient is alert, oriented x 3, equal unlabored respirations, skin warm/dry/pink. Vital Signs: 09:17 BP 140 / 63; Pulse 70; Resp 20 S; Pulse Ox 99% on R/A; iw ED Course: 08:41 Patient arrived in ED. as 08:41 Duncan Chacko DO is Private Physician. as 08:58 Triage completed. iw 08:59 Lalit Marie MD is Attending Physician. kdr 09:02 Arm band placed on. iw 09:02 Bed in low position. Call light in reach. Side rails up X 1. kr3 09:15 Macrina Mckoy, RN is Primary Nurse. kr3 09:18 Duncan Chacko DO is Referral Physician. kdr 10:07 No provider procedures requiring assistance completed. Patient did not have IV access kr3 during this emergency room visit. Administered Medications: 09:35 Drug: Augmentin (Amoxicillin-Clavulanate) 875 mg Route: PO; kr3 10:08 Follow up: Response: No adverse reaction kr3 09:37 Drug: Ancef (cefazolin) 1 grams Route: IM; Site: right gluteus; kr3 10:08 Follow up: Response: No adverse reaction kr3 Medication: 10:08 VIS not applicable for this client. kr3 Outcome: 09:20 Discharge ordered by . kdr 10:04 Patient left the ED. kr3 10:07 Discharged to home kr3 10:07 Condition: stable 10:07 Discharge instructions given to patient, Instructed on discharge instructions, follow up and referral plans. medication usage, Demonstrated understanding of instructions, follow-up care, medications, Prescriptions given X 1. Signatures: Lalit Marie MD MD kdr Heidy Rosales Irene, JEANNA RN Macrina Mckoy, JEANNA RN kr3
--- NOTE | 2022-08-03 09:21 | EDPHYS ---
Physician Documentation [facility] Name: Tomas Delaney Age: 77 yrs Sex: Male : 1945 Arrival Date: 08/03/2022 Time: 08:41 Bed 19 [facility] MD: Duncan Chacko ED Physician Lalit Marie HPI: 08/03 10:29 This 77 yrs old Male presents to ER via Ambulatory with complaints of Wound Check. kdr 10:29 Patient presents to ED for recheck of: cellulitis, laceration. The affected area is on kdr the medial aspect of right calf and right shah. Previous treatment: Patient has been dressing the wound with Polysporin and a bandage. Due to significant pedal edema/lymphedema, the patient has significant drainage from the wound which is retarding healing. Patient has significant erythema to the right lower extremity compared to the left. Patient is not diabetic but is on anticoagulation therapy for DVT in the left leg. The patient has experienced similar episodes in the past, chronically. The patient has been recently seen by a physician: the patient's primary care provider. Historical: - Allergies: 09:01 Neosporin ([id number]); iw - Home Meds: 08:59 losartan-hydrochlorothiazide 100-12.5 mg oral tab 1 tab once daily [Active]; colestipol iw oral 2 times per day [Active]; potassium chloride 20 mEq Oral TbER 1 tab once daily [Active]; Eliquis 5 mg oral tab 1 tab 2 times per day [Active]; hydrocodone-acetaminophen 10-325 mg Oral tab [Active]; trazodone 50 mg Oral tab 1 tab once daily [Active]; Furosemide Oral [Active]; - PMHx: 08:58 Atrial fibrillation; DVT; Hypercholesterolemia; Hypertensive disorder; ibs; PROSTATE CA;iw - Immunization history:: Adult Immunizations unknown. - Social history:: Smoking status: unknown. ROS: 10:29 Constitutional: Negative for fever, chills, and weight loss, Eyes: Negative for injury, kdr pain, redness, and discharge, Neck: Negative for injury, pain, and swelling, Cardiovascular: Negative for chest pain, palpitations, and edema, Respiratory: Negative for shortness of breath, cough, wheezing, and pleuritic chest pain, Abdomen/GI: Negative for abdominal pain, nausea, vomiting, diarrhea, and constipation, Back: Negative for injury and pain, : Negative for injury, bleeding, discharge, and swelling, MS/Extremity: Negative for injury and deformity, Neuro: Negative for headache, weakness, numbness, tingling, and seizure activity. Psych: Negative for depression, anxiety, suicide ideation, homicidal ideation, and hallucinations, Allergy/Immunology: Negative for hives, rash, and allergies, Endocrine: Negative for neck swelling, polydipsia, polyuria, polyphagia, and marked weight changes, Hematologic/Lymphatic: Negative for swollen nodes, abnormal bleeding, and unusual bruising. 10:29 Skin: Positive for avulsion, cellulitis, laceration(s), of the medial aspect of right calf. Exam: 10:29 Constitutional: This is a well developed, well nourished patient who is awake, alert, kdr and in no acute distress. 10:29 Skin: cellulitis, that is mild, that is moderate, confluent, well demarcated, on the medial aspect of right calf and right shah, induration, that is moderate is noted, injury, laceration(s), Wound recheck: Cellulitis: Vital Signs: 09:17 BP 140 / 63; Pulse 70; Resp 20 S; Pulse Ox 99% on R/A; iw MDM: 09:20 Patient medically screened. kdr 10:33 Data reviewed: vital signs, nurses notes. kdr Administered Medications: 09:35 Drug: Augmentin (Amoxicillin-Clavulanate) 875 mg Route: PO; kr3 10:08 Follow up: Response: No adverse reaction kr3 09:37 Drug: Ancef (cefazolin) 1 grams Route: IM; Site: right gluteus; kr3 10:08 Follow up: Response: No adverse reaction kr3 Disposition Summary: 08/03/22 09:20 Discharge Ordered Location: Home kdr Problem: new kdr Symptoms: have improved kdr Condition: Stable kdr Diagnosis - Cellulitis of right lower limb kdr - Edema, unspecified - Bilateral lower extremities kdr Followup: kdr - With: Duncan Chacko DO - When: 48 Hours - Reason: Wound Recheck, If symptoms return, Further diagnostic work-up, Recheck today's complaints, Continuance of care, Re-evaluation by your physician Discharge Instructions: - Discharge Summary Sheet kdr - Cellulitis, Adult, [id number] kdr - Wound Infection, [id number] kdr - How to Change Your Wound Dressing, [id number] kdr Forms: - Medication Reconciliation Form kdr - Thank You Letter kdr - Antibiotic Education kdr Prescriptions: - Augmentin 875-125 mg Oral Tablet - take 1 tablet by ORAL route every 12 hours for 10 days; 20 tablet; Refills: 0, kdr Product Selection Permitted Signatures: Lalit Marie MD MD kdr Nel Soto RN RN iw Macrina Mckoy RN RN kr3
[2022-08-03] MEDS ORDERED: LIDOCAINE 1% MPF 2 ML AMPULE ONE (09:32)
[2022-08-03] MEDS ORDERED: CEFAZOLIN SODIUM 1 GM/VIAL ONE (09:32)
[2022-08-03] MEDS ORDERED: AMOX/K CLAV 875 MG TAB ONE (09:32)
[2022-08-03] MEDS ORDERED: WATER FOR INJ,STERILE 10 ML ONE (09:39)
[2022-08-03 10:18] VITALS: BP 140/63; O2SAT 99
== END 2022-08-03 10:04 | disposition home or self-care (01) ==
LOC: ER 08:38
DX: L03.115 Cellulitis of right lower limb (principal); R60.0 Localized edema; I10 Essential (primary) hypertension; I48.91 Unspecified atrial fibrillation; Z79.01 Long term (current) use of anticoagulants; Z88.3 Allergy status to other anti-infective agents; Z86.718 Personal history of other venous thrombosis and embolism
CPT/HCPCS: 96372; 99283; J0690

== ENCOUNTER 2022-08-05 14:31 | Inpatient (IN) | payer OTHER ==
--- OUTSIDE RECORDS SUMMARY | 2022-08-05 14:52 | XMS REPORT | Continuity of Care Document ---
:1945 Author Organization [facility] t Address [address] [place] [address] Care Team Providers Name Role Phone MANJEET RAMIREZ Attending Clinician Unavailable TELLY Attending Clinician Unavailable TELLY Admitting Clinician Unavailable Payers Payer Name Policy Type Policy Number Effective Date Expiration Date Cedirc franklin FRANCISCO (PPO) [id number] 2022 00:00:00 [place]IC[place]: [id number] 2011 [employer] 00:00:00 AETNA [id number] 2002 00:00:00 Problems Condition Condition Condition Status Onset Resolution Last Treating Co mments Source Name Details Category Date Date Treatment Clinician Date Atrial Atrial Problem Active 2021-06 [place] fibrillati Fibrillati 1-29 Co mmuni on on [...] Hospita Clinics Sleep Sleep Problem Active 2021-06 [place] apnea Apnea 0-03 Communi 00:00: ty 00 [facility] Heart Heart Problem Active 2021-06 [place] murmur Murmur 0-03 Communi 00:00: ty 00 [facility] History of History of Problem Active 2021-06 S weencristopher deep vein Deep Vein 0-03 Comm uni thrombosis Thrombosis 00:00: ty 00 [facility] Hyperchole Hyperchole Problem Active 2021-06 S weeny sterolemia sterolemia 0-03 Co mmuni 00:00: ty 00 [facility] Erectile Erectile Problem Active 2021-06 Sween y dysfunctio Dysfunctio 0-03 Co mmuni n n 00:00: ty 00 [facility] Chronic Chronic Problem Active 2021-06 [place] pain Pain 0-03 Communi syndrome Syndrome 00:00: ty 00 [facility] History of History of Problem Active S weeny SARS-CoV-2 SARS-CoV-2 9-05 Co mmuni 00:00: ty 00 [facility] Body mass Body Mass Problem Active Swe garrett index 40+ Index 40+ 1-05 Comm uni - severely - Severely 00:00: ty obese Obese 00 [facility] Benign Benign Problem Active [place] prostatic Prostatic 7-14 Comm uni hyperplasi Hyperplasi 00:00: ty a a 00 [facility] Carcinoma Carcinoma Problem Active Swe garrett of of 3-23 Communi prostate Prostate 00:00: ty 00 [facility] Raised Raised Problem Active 2019-06 [place] prostate Prostate 1-09 Commun i specific Specific 00:00: ty antigen Antigen 00 [facility] [id number] Other Problem Common synovitis Spirit and - [facility] tenosynovi [facility] ankle and Medical foot [place] [id number] Cancer of Problem Comm on prostate [facility] with - [facility] recurrence Medica l risk Center (stage T2b-c or [place] 7 or PSA 10-20) [id number] BPH loc w Problem Com mon urin Spirit obs/LUTS - [facility] [id number] Prostate Problem Comm on cancer Spirit - [facility] [id number] 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 Allergies, Adverse Reactions, Alerts This patient has no known allergies or adverse reactions. Social History Social Habit Start Date Stop Date Quantity Comments Source History of Tobacco Use Co mmon [facility] Sex Assigned At Com juan miguel [facility] Smoking Status Start Date Stop Date Source Former Smoker 2022-07-09 00:00:00 2022-07-09 00:00:00 Common S [facility] Medications Ordered Filled Start Stop Current Ordering Indication Dosage Frequency Signature Comments Components Source Medication Medication Date Date Medication? Clinician (SIG) Name Name Eliquis 5 Eliquis 5 No Eliquis 5 [place] mg tablet mg tablet mg tablet Communi Take 1 Take 1 Take 1 ty tablet BID tablet BID tablet BID Hospita PO PO PO l Clinics hydrochloro hydrochloro No 1 Q1D hydrochlor [place] thiazide thiazide othiazide Co mmuni 12.5 mg 12.5 mg 12.5 mg ty tablet Take tablet Take tablet Hospita 1 tablet 1 tablet Take 1 l every day every day tablet Cli nics by oral by oral every day route. route. by oral route. hydrocodone hydrocodone No 1 Q6H hydrocodon [place] 10 10 e 10 Communi mg-acetamin mg-acetamin [...] by oral route. potassium potassium No potassium [place] chloride ER chloride ER chloride Communi 20 mEq 20 mEq ER 20 mEq ty tablet,exte tablet,exte tablet,ext Hospita nded nded ended l release(par release(par release([facility] t/cryst) t/cryst) rt/cryst) Take 1 Take 1 Take 1 tablet tablet tablet daily by daily by daily by mouth mouth mouth simvastatin simvastatin No simvastati [place] 40 mg 40 mg n 40 mg Communi tablet TAKE tablet TAKE tablet ty 1 TABLET BY 1 TABLET BY TAKE 1 Hospita MOUTH EVERY MOUTH EVERY TABLET BY l DAY AT DAY AT MOUTH Clinics NIGHT NIGHT EVERY DAY AT NIGHT trazodone trazodone No trazodone [place] 50 mg 50 mg 50 mg Communi tablet TAKE tablet TAKE tablet ty 1 TABLET BY 1 TABLET BY TAKE 1 Hospita MOUTH MOUTH TABLET BY l EVERYDAY AT EVERYDAY AT MOUTH Clinics BEDTIME BEDTIME EVERYDAY AT BEDTIME colestipol colestipol No colestipol [place] 1 gram 1 gram 1 gram Communi tablet tablet tablet ty PLEASE SEE PLEASE SEE PLEASE SEE Hospita ATTACHED ATTACHED ATTACHED l FOR FOR FOR Clinics DETAILED DETAILED DETAILED DIRECTIONS DIRECTIONS DIRECTIONS Eliquis 5 Eliquis 5 No Eliquis 5 [place] mg tablet mg tablet mg tablet Communi Take 1 Take 1 Take 1 ty tablet BID tablet BID tablet BID Hospita PO PO PO l Clinics hydrochloro hydrochloro No hydrochlor [place] thiazide thiazide othiazide Co mmuni 12.5 mg [...] by oral route. potassium potassium No potassium [place] chloride ER chloride ER chloride Communi 20 mEq 20 mEq ER 20 mEq ty tablet,exte tablet,exte tablet,ext Hospita nded nded ended l release(par release(par release([facility] t/cryst) t/cryst) rt/cryst) Take 1 Take 1 Take 1 tablet tablet tablet daily by daily by daily by mouth mouth mouth simvastatin simvastatin No simvastati [place] 40 mg 40 mg n 40 mg Communi tablet TAKE tablet TAKE tablet ty 1 TABLET BY 1 TABLET BY TAKE 1 Hospita MOUTH EVERY MOUTH EVERY TABLET BY l DAY AT DAY AT MOUTH Clinics NIGHT NIGHT EVERY DAY AT NIGHT trazodone trazodone No trazodone [place] 50 mg 50 mg 50 mg Communi tablet TAKE tablet TAKE tablet ty 1 TABLET BY 1 TABLET BY TAKE 1 Hospita MOUTH MOUTH TABLET BY l EVERYDAY AT EVERYDAY AT MOUTH Clinics BEDTIME BEDTIME EVERYDAY AT BEDTIME azelastine azelastine No azelastine [place] 137 mcg 137 mcg 137 mcg Commun i (0.1 %) (0.1 %) (0.1 %) ty nasal spray nasal spray nasal [facility] aerosol aerosol spray l SPRAY 1 SPRAY 1 aerosol Clinic s SPRAYS (137 SPRAYS (137 SPRAY 1 MCG) IN MCG) IN SPRAYS EACH EACH (137 MCG) NOSTRIL BY NOSTRIL BY IN EACH INTRANASAL INTRANASAL NOSTRIL BY ROUTE ONCE ROUTE ONCE INTRANASAL DAILY DAILY ROUTE ONCE NEEDED NEEDED DAILY NEEDED colestipol colestipol No colestipol [place] 1 gram 1 gram 1 gram Communi [...] route. meloxicam meloxicam No 1 Q1D meloxicam [place] 15 mg 15 mg 15 mg Communi tablet Take tablet Take tablet ty 1 tablet 1 tablet Take 1 Hospi ta every day every day tablet l by oral by oral every day Clin ics route. route. by oral route. simvastatin simvastatin No 1 Q1D simvastati [place] 40 mg 40 mg n 40 mg Communi tablet Take tablet Take tablet ty 1 tablet 1 tablet Take 1 Hospi ta every day every day tablet l by oral by oral every day Clin ics route in route in by oral the the route in evening. evening. the evening. trazodone trazodone No 1 Q1D trazodone [place] 50 mg 50 mg 50 mg Communi tablet Take tablet Take tablet ty 1 tablet 1 tablet Take 1 Hospi ta every day every day tablet l by oral by oral every day Clin ics route as route as by oral directed. directed. route as directed. azelastine azelastine No azelastine [place] 137 mcg 137 mcg 137 mcg Commun [...] NEEDED DAILY NEEDED colestipol colestipol No colestipol [place] 1 gram 1 gram 1 gram Communi [...] route. meloxicam meloxicam No 1 Q1D meloxicam [place] 15 mg 15 mg 15 mg Communi tablet Take tablet Take tablet ty 1 tablet 1 tablet Take 1 Hospi ta every day every day tablet l by oral by oral every day Clin ics route. route. by oral route. simvastatin simvastatin No 1 Q1D simvastati [place] 40 mg 40 mg n 40 mg Communi tablet Take tablet Take tablet ty 1 tablet 1 tablet Take 1 Hospi ta every day every day tablet l by oral by oral every day Clin ics route in route in by oral the the route in evening. evening. the evening. trazodone trazodone No 1 Q1D trazodone [place] 50 mg 50 mg 50 mg Communi tablet Take tablet Take tablet ty 1 tablet 1 tablet Take 1 Hospi ta every day every day tablet l by oral by oral every day Clin ics route as route as by oral directed. directed. route as directed. cephalexin cephalexin No 1capsul BID cephalexin [place] 500 mg 500 mg e(s) 500 mg Communi capsule capsule capsule ty Take 1 Take 1 Take 1 Hospita capsule capsule capsule l twice a day twice a day twice a Clinics by oral by oral day by route. route. oral route. colestipol colestipol No colestipol [place] 1 gram 1 gram 1 gram Communi tablet TAKE tablet TAKE tablet ty 2 TABLETS 2 TABLETS TAKE 2 Hos truong (2 G TOTAL) (2 G TOTAL) TABLETS (2 l BY MOUTH BY MOUTH G TOTAL) Cli nics DAILY TO DAILY TO BY MOUTH HELP HELP DAILY TO CONTROL CONTROL HELP BOWELS. BOWELS. CONTROL BOWELS. hydrocodone hydrocodone No hydrocodon [place] 10 10 e 10 Communi mg-acetamin mg-acetamin [...] Turmeric simvastatin simvastatin No 1 Q1D simvastati [place] 40 mg 40 mg n 40 mg Communi tablet Take tablet Take tablet ty 1 tablet 1 tablet Take 1 Hospi ta every day every day tablet l by oral by oral every day Clin ics route in route in by oral the the route in evening. evening. the evening. trazodone trazodone No 1 Q1D trazodone [place] 50 mg 50 mg 50 mg Communi [...] losartan No losartan colestipol colestipol No colestipol [place] 1 gram 1 gram 1 gram Communi tablet tablet tablet ty PLEASE SEE PLEASE SEE PLEASE SEE Hospita ATTACHED ATTACHED ATTACHED l FOR FOR FOR Clinics DETAILED DETAILED DETAILED DIRECTIONS DIRECTIONS DIRECTIONS Eliquis 5 Eliquis 5 No Eliquis 5 [place] mg tablet mg tablet mg tablet Communi Take 1 Take 1 Take 1 ty tablet BID tablet BID tablet BID Hospita PO PO PO l Clinics hydrochloro hydrochloro No 1 Q1D hydrochlor [place] thiazide thiazide othiazide Co mmuni 12.5 mg 12.5 mg 12.5 mg ty tablet Take tablet Take tablet Hospita 1 tablet 1 tablet Take 1 l every day every day tablet Cli nics by oral by oral every day route. route. by oral route. hydrocodone hydrocodone No 1 Q6H hydrocodon [place] 10 10 e 10 Communi mg-acetamin mg-acetamin [...] by oral route. potassium potassium No potassium [place] chloride ER chloride ER chloride Communi 20 mEq 20 mEq ER 20 mEq ty tablet,exte tablet,exte tablet,ext Hospita nded nded ended l release(par release(par release([facility] Clinics t/cryst) t/cryst) rt/cryst) Take 1 Take 1 Take 1 tablet tablet tablet daily by daily by daily by mouth mouth mouth simvastatin simvastatin No simvastati [place] 40 mg 40 mg n 40 mg Communi tablet TAKE tablet TAKE tablet ty 1 TABLET BY 1 TABLET BY TAKE 1 Hospita MOUTH EVERY MOUTH EVERY TABLET BY l DAY AT DAY AT MOUTH Clinics NIGHT NIGHT EVERY DAY AT NIGHT trazodone trazodone No trazodone [place] 50 mg 50 mg 50 mg Communi tablet TAKE tablet TAKE tablet ty 1 TABLET BY 1 TABLET BY TAKE 1 Hospita MOUTH MOUTH TABLET BY l EVERYDAY AT EVERYDAY AT MOUTH Clinics BEDTIME BEDTIME EVERYDAY AT BEDTIME colestipol colestipol No colestipol [place] 1 gram 1 gram 1 gram Communi tablet tablet tablet ty PLEASE SEE PLEASE SEE PLEASE SEE Hospita ATTACHED ATTACHED ATTACHED l FOR FOR FOR Clinics DETAILED DETAILED DETAILED DIRECTIONS DIRECTIONS DIRECTIONS Vital Signs Vital Name Observation Time Observation Value Comments Source BP Diastolic 2022-07-17 00:00:00 84 mm[Hg] [facility] s Height 2022-07-17 00:00:00 73 [in_i] [facility] s BMI (Body Mass 2022-07-17 00:00:00 38 kg/m2 [facility] BP Systolic 2022-07-17 00:00:00 140 mm[Hg] [facility] s Body Weight 2022-07-17 00:00:00 4608 [oz_av] [facility] s height 2022-07-09 09:45:00 71 [in_i] Common [facility] weight 2022-07-09 09:45:00 285.2 [lb_av] Common [facility] temperature 2022-07-09 09:45:00 97.6 [degF] Common [facility] bmi 2022-07-09 09:45:00 39.77 kg/m2 [facility] oximetry 2022-07-09 09:45:00 95 % [facility] respiratory rate 2022-07-09 09:45:00 16 /min Comm on [facility] blood pressure 2022-07-09 09:45:00 154 mm[Hg] Common [facility] - systolic [facility] blood pressure 2022-07-09 09:45:00 74 mm[Hg] Common [facility] - diastolic [facility] BP Diastolic 2022-06-17 00:00:00 84 mm[Hg] [facility] Clinic s Height 2022-06-17 00:00:00 73 [in_i] [facility] s BMI (Body Mass 2022-06-17 00:00:00 37.7 kg/m2 [facility]) [facility] Clinic s BP Systolic 2022-06-17 00:00:00 154 mm[Hg] [facility] s Body Weight 2022-06-17 00:00:00 4576 [oz_av] [facility] s BP Diastolic 2022-04-17 00:00:00 80 mm[Hg] [facility] Clinic s Height 2022-04-17 00:00:00 73 [in_i] [facility] s BMI (Body Mass 2022-04-17 00:00:00 37.7 kg/m2 [facility]) [facility] s BP Systolic 2022-04-17 00:00:00 124 mm[Hg] [facility] s Body Weight 2022-04-17 00:00:00 4576 [oz_av] [facility] Clinic s height 2022-04-16 15:00:00 71 [in_i] [facility] weight 2022-04-16 15:00:00 280 [lb_av] [facility] temperature 2022-04-16 15:00:00 97.6 [degF] [facility] bmi 2022-04-16 15:00:00 39.05 kg/m2 [facility] oximetry 2022-04-16 15:00:00 96 % Common S pirit [facility] respiratory rate 2022-04-16 15:00:00 18 /min Comm on [facility] blood pressure 2022-04-16 15:00:00 139 mm[Hg] [facility] - systolic [facility] blood pressure 2022-04-16 15:00:00 88 mm[Hg] [facility] - diastolic [facility] BP Diastolic 2022-03-17 00:00:00 78 mm[Hg] [facility] s Height 2022-03-17 00:00:00 73 [in_i] [facility] s BMI (Body Mass 2022-03-17 00:00:00 39.8 kg/m2 [facility]) [facility] s BP Systolic 2022-03-17 00:00:00 142 mm[Hg] [facility] s Body Weight 2022-03-17 00:00:00 4824 [oz_av] [facility] s Procedures Procedure Date / Time Performed Performing Clinician Sour e Appendectomy [facility] Hemorrhoidectomy [facility] Total Knee Replacement [facility] Tonsillectomy [facility] Vasectomy [facility] Plan of Care Planned Activity Planned Date Details Comments Source Diagnostic Test 2022-03-17 CMP, serum or [place] Comm unity Pending 00:00:00 plasma [code = Hospital Clin ics CMP, serum or plasma] Diagnostic Test 2022-03-17 CBC w/ auto diff [facility] Pending 00:00:00 [code = CBC w/ Hospital Clin ics auto diff] Diagnostic Test 2022-03-17 lipid panel, [place] Commu nity Pending 00:00:00 serum [facility] Diagnostic Test 2022-03-17 HbA1c (hemoglobin [facility] Pending 00:00:00 A1c), blood [code Hospital C linics = HbA1c (hemoglobin A1c), blood] Diagnostic Test 2022-03-17 TSH, serum or [place] Comm unity Pending 00:00:00 plasma [code = Hospital Clin ics TSH, serum or plasma] Future [facility]ment [facility]10-[facility] [address]; [facility] [place] [address] Encounters Start End Encounter Admission Attending Care Care Encounter Source Date/Time Date/Time Type Type Clinicians Facility Department ID 2022-07-[address] [facility] [id number] Common 16:38:01 MANJEET [id number] [facility] 2022-06-[address] [facility] [id number] Common 11:02:02 MANJEET [id number] [facility] 2022-04-[address] [facility] [id number] Common 14:36:03 MANJEET [id number] [facility] 2022-07-30 2022-07-30 Outpatient ERCASANDRAON_R [facility] [address] [place] 00:00:00 00:00:00 0215 Commun i ty Hospita l [facility] 2022-07-17 2022-07-17 Manjeet [facility] [place] 00:00:00 00:00:00 [facility] DO: [address] Hospit a [facility], HOSPITAL Clinic s [place], [place] CLINIC, [address] JAMES , Ph. [phone] 2022-07-09 2022-07-[address] [facility] [id number] Co mmon 00:00:00 00:00:00 VISIT EST Spir it PT LEVEL [address] [place] [address] 2022-06-17 2022-06-17 Outpatient ERICKSON_R [facility] [address] [place] 00:00:00 00:00:00 [id number] Commun i ty Hospita l Clinics 2022-06-17 2022-06-17 Outpatient ERICKSON_R [facility] [id number] [place] 00:00:00 00:00:00 0202 Commun i ty Hospita l Clinics 2022-06-17 2022-06-17 Manjeet [facility] [place] 00:00:00 00:00:00 [facility] ty DO: [address] Hospit a [facility], HOSPITAL [place], [place] CLINIC, [address] JAMES , Ph. 2022-05-11 2022-05-11 Outpatient ERICKSON_R [facility] [id number] [place] 00:00:00 00:00:00 [id number] Commun i ty Hospita l Clinics 2022-04-17 2022-04-17 Outpatient ERICKSON_R [facility] [id number] [place] 00:00:00 00:00:00 1103 Commun i ty Hospita l Clinics 2022-04-17 2022-04-17 Manjeet [facility] [place] [id number] 03 [place] 00:00:00 00:00:00 [facility] - DO: [address] Hospit [facility], HOSPITAL [place], [place] CLINIC, [address] JAMES , Ph. 2022-04-16 2022-04-[address] [facility] [id number] Co mmon 00:00:00 00:00:00 VISIT [facility] PT LEVEL 3 - [facility] 2022-03-21 2022-03-21 Outpatient ERICKSON_R [facility] [id number] [place] 00:00:00 00:00:00 1007 Commun i ty Hospita l Clinics 2022-03-18 2022-03-18 Outpatient ERICKSON_R [facility] [id number] [place] 00:00:00 00:00:00 1004 Commun i ty Hospita l Clinics 2022-03-17 2022-03-17 Outpatient ERICKSON_R [facility] [id number] [place] 00:00:00 00:00:00 1003 Commun i ty Hospita l Clinics 2022-03-17 2022-03-17 [facility] [place] [id number] 00:00:00 00:00:00 [facility] [address] Hospit a [facility] [address], HOSPITAL Clinic s [place], [place], [address] JAMES , Ph. [phone] Results This patient has no known results.
[2022-08-05 15:43] LABS: SARS-CoV-2 Antigen Rapid Res Negative (Negative)
--- NOTE | 2022-08-05 16:11 | EDPHYS ---
Physician Documentation [facility] Name: Tomas Delaney Age: 77 yrs Sex: Male : 1945 Arrival Date: 08/05/2022 Time: 14:34 Bed 27 Private MD: Duncan Chacko; Choco Snider ED Physician Hoang Delaney HPI: 08/05 15:21 This 77 yrs old Male presents to ER via Wheelchair with complaints of Wound Check. rn 15:21 Patient presents to ED for recheck of: cellulitis. The affected area is on the right rn leg. The patient has experienced similar episodes in the past. The patient has not recently seen a physician. Pt and report cellulitis, started on abx over the weekend, now worse, seen by Dr. Snider today and sent here for admission. . Historical: - Allergies: 15:02 Neosporin ([id number]); ap3 - PMHx: 15:02 Atrial fibrillation; DVT; Hypercholesterolemia; Hypertensive disorder; ibs; PROSTATE CA;ap3 - Immunization history:: Client reports receiving the 2nd dose of the Covid vaccine, Flu vaccine is not up to date. - Social history:: Smoking status: Patient denies any tobacco usage or history of. - Family history:: not pertinent. - Hospitalizations: : No recent hospitalization is reported. ROS: 15:21 Constitutional: Negative for fever, chills, and weight loss, Eyes: Negative for injury, rn pain, redness, and discharge, Cardiovascular: + lower ext edema Respiratory: Negative for shortness of breath, cough, wheezing, and pleuritic chest pain, Abdomen/GI: Negative for abdominal pain, nausea, vomiting, diarrhea, and constipation, MS/Extremity: Negative for injury Skin: + redness and warmth with drainage to RLE Neuro: Negative for headache, weakness, numbness, tingling, and seizure. Exam: 15:21 Constitutional: This is a well developed, well nourished patient who is awake, alert, rn and in no acute distress. Cardiovascular: Bradycardic, irregular. No pulse deficits. Respiratory: No increased work of breathing, no retractions or nasal flaring. Skin: Warm, + erythema of RLE without streaking, + drainage with foul smell, no fluctuance. MS/ Extremity: Pulses equal, no cyanosis. 3+ pitting edema bilateral lower ext Neuro: Awake and alert, GCS 15 16:13 ECG was reviewed by the Attending Physician. rn Vital Signs: 15:04 BP 139 / 44; Pulse 57; Resp 19; Temp 98.8; Pulse Ox 98% ; Weight 131.54 kg; Height 6 ap3 ft. 1 in. (185.42 cm); Pain 8/10; 16:00 BP 144 / 59; Pulse 60; Resp 16; Pulse Ox 93% on R/A; Pain 3/10; sg5 17:00 BP 133 / 60; Pulse 58; Resp 16; Pulse Ox 96% on 2 lpm NC; Pain 3/10; sg5 18:00 BP 140 / 71; Pulse 62; Resp 16; Temp 98.9; Pulse Ox 96% on 2 lpm NC; Pain 3/10; sg5 15:04 Body Mass Index 38.26 (131.54 kg, 185.42 cm) ap3 MDM: 14:55 Patient medically screened. rn 16:09 Differential diagnosis: cellulitis. Data reviewed: vital signs, nurses notes, lab test rn result(s), and as a result, I will admit patient. Consideration of Admission/Observation Patient was admitted/placed on observation. Escalation of care including admission/observation considered. I considered the following discharge prescriptions or medication management in the emergency department Medications were administered in the Emergency Department. See MAR. Care significantly affected by the following chronic conditions: Hypertension, lymphedema. Counseling: I had a detailed discussion with the patient and/or guardian regarding: the historical points, exam findings, and any diagnostic results supporting the discharge/admit diagnosis, lab results, the need for further work-up and treatment in the hospital. 16:54 ED course: Pt with elevated lactate, and source, but does not meet SIRS criteria rn currently for severe sepsis. . 08/05 15:12 Order name: Blood Culture Adult (2) rn 08/05 15:12 Order name: CBC with Diff rn 08/05 15:12 Order name: CMP rn 08/05 15:12 Order name: Lactate w/ 2H reflex if indic. rn 08/05 15:12 Order name: Protime (+inr) rn 08/05 15:12 Order name: Ptt, Activated rn 08/05 15:12 Order name: Wound Culture rn 08/05 15:12 Order name: SARS RAPID rn 08/05 15:12 Order name: BNP rn 08/05 15:44 Order name: SARS-COV-2 Antigen Rapid; Complete Time: 15:51 EDMS 08/05 16:29 Order name: CBC with Automated Diff; Complete Time: 16:45 EDMS 08/05 16:34 Order name: Protime (+INR); Complete Time: 16:45 EDMS 08/05 16:34 Order name: PTT, Activated Partial Thromb; Complete Time: 16:45 EDMS 08/05 16:45 Order name: Comprehensive Metabolic Panel; Complete Time: 16:53 EDMS 08/05 15:12 Order name: EKG; Complete Time: 15:13 rn 08/05 16:45 Order name: NT PRO-BNP; Complete Time: 16:53 EDMS 08/05 16:53 Order name: Lactate w/ 2H reflex if indic.; Complete Time: 17:06 EDMS 02 18:25 Order name: Phosphorus EDAZ 08/05 18:25 Order name: Magnesium EDAZ 08/05 18:43 Order name: Lipid Profile EDAZ 08/05 18:48 Order name: Hemoglobin A1c EDAZ 08/05 19:58 Order name: Vancomycin Level Trough EDMS 08/05 20:59 Order name: Lactate Sepsis 2 HR Follow-up EDMS 08/05 23:10 Order name: Urinalysis EDAZ 08/05 15:12 Order name: Accucheck; Complete Time: 16:38 rn 08/05 15:12 Order name: Cardiac monitoring; Complete Time: 16:38 rn 08/05 15:12 Order name: EKG - Nurse/Tech; Complete Time: 17:00 rn 08/05 15:12 Order name: IV Saline Lock - Large Bore; Complete Time: 16:38 rn 08/05 15:12 Order name: Labs collected and sent; Complete Time: 16:38 rn 08/05 15:12 Order name: O2 Per Protocol; Complete Time: 16:38 rn 08/05 15:12 Order name: O2 Sat Monitoring; Complete Time: 16:38 rn 08/05 15:12 Order name: Vital Signs; Complete Time: 16:38 rn EC:13 Rate is 93 beats/min. Rhythm is irregular. Left axis deviation noted. QRS is positive rn in lead I and negative in lead aVF. QRS interval is prolonged at 146 msec. QT interval is normal. No Q waves. T waves are Normal. No ST changes noted. Clinical impression: Atrial Fibrillation. Interpreted by me. Reviewed by me. Administered Medications: 16:45 Drug: morphine 4 mg Route: IVP; Infused Over: 4 mins; Site: left antecubital; sg5 16:45 Drug: Zofran (Ondansetron) 4 mg Route: IVP; Site: left antecubital; sg5 16:50 Drug: LevaQUIN (levofloxacin) 500 mg Volume: 100 ml; Route: IVPB; Infused Over: 60 sg5 mins; Site: left antecubital; 18:00 Follow up: Response: No adverse reaction; IV Intake: 100ml sg5 18:25 Follow up: IV Status: Completed infusion; IV Intake: 100ml bp 17:10 Drug: NS 0.9% 500 ml Route: IV; Rate: bolus; Site: right antecubital; bp 17:10 Drug: NS 0.9% 500 ml Route: IV; Rate: bolus; Site: right antecubital; bp 18:00 Drug: vancoMYCIN 15 mg/kg Route: IVPB; Site: left antecubital; sg5 Disposition Summary: 08/05/22 16:10 Hospitalization Ordered Hospitalization Status: Inpatient Admission rn Provider: Ervin [place] rn Condition: Stable rn Problem: an ongoing problem rn Symptoms: have worsened rn Bed/Room Type: Standard rn Location: Telemetry/MedSurg (Inpatient)(08/05/22 21:47) cg Room Assignment: [facility](08/05/22 21:47) Diagnosis - Cellulitis of right lower limb rn - Failure of outpatient therapy/treatment rn Forms: - Medication Reconciliation Form rn - SBAR form rn Signatures: Dispatcher [employer] EDHoang Rivas MD MD rn Garcia, Cindy RN RN David Gregory RN RN Ashley Minor RN RN [email or web address] Aydee Munoz RN RN sg5 Corrections: (The following items were deleted from the chart) 20:21 16:10 Telemetry/MedSurg (Inpatient) rn cg 20:21 16:10 rn cg 21:47 20:21 [facility] ER HOLD cg cg 21:47 20:21 ERHOLD- cg cg
--- NOTE | 2022-08-05 16:11 | ER ---
Nurse's Notes [facility] Name: Tomas Delaney Age: 77 yrs Sex: Male : 1945 Arrival Date: 08/05/2022 Time: 14:34 Bed 27 Private MD: Duncan Chacko; Choco Snider Diagnosis: Cellulitis of right lower limb;Failure of outpatient therapy/treatment Presentation: 08/05 15:00 Chief complaint: Patient states: he was sent from wound care to be admitted. patient ap3 presents to the ED with a wound on his right lower extremity (patient states its on his right calf). wound is dressed from wound care. patient reports pain of 8/10 on the pain scale. Coronavirus screen: At this time, the client does not indicate any symptoms associated with coronavirus-19. Ebola Screen: No symptoms or risks identified at this time. Initial Sepsis Screen:. Risk Assessment: Do you want to hurt yourself or someone else? Patient reports no desire to harm self or others. Onset of symptoms was July 22, 2022. 15:00 Method Of Arrival: Wheelchair ap3 15:05 Acuity: CONNOR 3 ap3 15:05 Initial Sepsis Screen: Does the patient meet any 2 criteria? No. Patient's initial ap3 sepsis screen is negative. Does the patient have a suspected source of infection? Yes: Skin breakdown/wound. Triage Assessment: 15:03 General: Appears uncomfortable, Behavior is calm, cooperative, appropriate for age. ap3 Pain: Complains of pain in right calf Pain currently is 8 out of 10 on a pain scale. Neuro: Level of Consciousness is awake, alert, obeys commands, Oriented to person, place, time, situation. Cardiovascular: Patient's skin is warm and dry. Respiratory: Airway is patent Respiratory effort is even, unlabored. Derm: Wound noted right calf. Historical: - Allergies: 15:02 Neosporin ([id number]); ap3 - PMHx: 15:02 Atrial fibrillation; DVT; Hypercholesterolemia; Hypertensive disorder; ibs; PROSTATE CA;ap3 - Immunization history:: Client reports receiving the 2nd dose of the Covid vaccine, Flu vaccine is not up to date. - Social history:: Smoking status: Patient denies any tobacco usage or history of. - Family history:: not pertinent. - Hospitalizations: : No recent hospitalization is reported. Screenin:05 Abuse screen: Denies threats or abuse. Nutritional screening: No deficits noted. ap3 Tuberculosis screening: No symptoms or risk factors identified. Assessment: 15:10 General: SEE TRIAGE NOTE. bp 16:21 General: Appears in no apparent distress. comfortable, Behavior is calm, cooperative, sg5 appropriate for age. Pain: Complains of pain in right leg and left leg Pain currently is 7 out of 10 on a pain scale. Neuro: No deficits noted. Level of Consciousness is awake, alert, obeys commands, Oriented to person, place, time, situation, Appropriate for age. Cardiovascular: No deficits noted. Capillary refill < 3 seconds Rhythm is regular. Respiratory: No deficits noted. Airway. GI: No deficits noted. No signs and/or symptoms were reported involving the gastrointestinal system. : No deficits noted. No signs and/or symptoms were reported regarding the genitourinary system. EENT: No deficits noted. No signs and/or symptoms were reported regarding the EENT system. Derm: Skin is red, Skin temperature is hot Wound noted right leg. Musculoskeletal: No deficits noted. No signs and/or symptoms reported regarding the musculoskeletal system. 18:23 Reassessment: Patient and/or family updated on plan of care and expected duration. Pain sg5 level reassessed. Patient is alert, oriented x 3, equal unlabored respirations, skin warm/dry/pink. Pain improved with pain medication. Vital Signs: 15:04 BP 139 / 44; Pulse 57; Resp 19; Temp 98.8; Pulse Ox 98% ; Weight 131.54 kg; Height 6 ap3 ft. 1 in. (185.42 cm); Pain 8/10; 16:00 BP 144 / 59; Pulse 60; Resp 16; Pulse Ox 93% on R/A; Pain 3/10; sg5 17:00 BP 133 / 60; Pulse 58; Resp 16; Pulse Ox 96% on 2 lpm NC; Pain 3/10; sg5 18:00 BP 140 / 71; Pulse 62; Resp 16; Temp 98.9; Pulse Ox 96% on 2 lpm NC; Pain 3/10; sg5 15:04 Body Mass Index 38.26 (131.54 kg, 185.42 cm) ap3 ED Course: 14:34 Patient arrived in ED. as 14:35 Duncan Chacko DO is Private Physician. as 14:35 Choco Snider MD is Private Physician. as 14:55 Hoang Delaney MD is Attending Physician. rn 15:05 Triage completed. ap3 15:05 Arm band placed on left wrist. ap3 15:06 Patient has correct armband on for positive identification. Adult w/ patient. ap3 15:57 Inserted saline lock: 20 gauge in left antecubital area, using aseptic technique. Blood sg5 collected. 16:10 Ervin [place] MD is Hospitalizing Provider. rn 16:59 Wound Culture Sent. bp 16:59 CBC with Diff Sent. bp 16:59 Blood Culture Adult (2) Sent. bp 17:00 Lactate w/ 2H reflex if indic. Sent. bp 17:00 CMP Sent. bp 17:00 Ptt, Activated Sent. bp 17:00 Protime (+inr) Sent. bp 17:00 BNP Sent. bp 18:34 David Paredes, JEANNA is Primary Nurse. bp Administered Medications: 16:45 Drug: morphine 4 mg Route: IVP; Infused Over: 4 mins; Site: left antecubital; sg5 16:45 Drug: Zofran (Ondansetron) 4 mg Route: IVP; Site: left antecubital; sg5 16:50 Drug: LevaQUIN (levofloxacin) 500 mg Volume: 100 ml; Route: IVPB; Infused Over: 60 sg5 mins; Site: left antecubital; 18:00 Follow up: Response: No adverse reaction; IV Intake: 100ml sg5 18:25 Follow up: IV Status: Completed infusion; IV Intake: 100ml bp 17:10 Drug: NS 0.9% 500 ml Route: IV; Rate: bolus; Site: right antecubital; bp 17:10 Drug: NS 0.9% 500 ml Route: IV; Rate: bolus; Site: right antecubital; bp 18:00 Drug: vancoMYCIN 15 mg/kg Route: IVPB; Site: left antecubital; sg5 Medication: 15:05 VIS not applicable for this client. ap3 Intake: 18:00 IV: 100ml; Total: 100ml. sg5 18:25 IV: 100ml; Total: 200ml. bp Outcome: 16:10 Decision to Hospitalize by Provider. rn 02/22 00:23 Patient left the ED. bb Signatures: Heidy Rosales Brenda, RN RN bb Hoang Delaney MD MD rn Peltier, Brian, RN RN Ashley Minor RN RN ap3 Aydee Munoz RN RN sg5
[2022-08-05 16:27] LABS: Absolute Lymphocytes (CBC) 1.4 K/uL (0.7-4.9); Hematocrit 43.5 % (39.6-49.0); Lymphocytes % 13.3 % (15.3-44.8); MCV 96.1 fL (80-100); MPV 7.2 fL (7.6-11.3); RBC Red Blood Cell Count 4.53 M/uL (4.33-5.43)
[2022-08-05 16:34] LABS: Protime INR 1.4
[2022-08-05] MEDS ORDERED: ONDANSETRON 4 MG/2 ML VIAL ONE (16:38)
[2022-08-05] MEDS ORDERED: MORPHINE 4 MG/ML SYR ONE (16:38)
[2022-08-05] MEDS ORDERED: VANCOMYCIN 1 GM/VIAL ONE (16:38)
[2022-08-05] MEDS ORDERED: Levofloxacin500mg IV 500 MG/100 ML BAG IV ONE (16:39)
[2022-08-05] MEDS ORDERED: NA CHLORIDE 0.9% 500 ML ONE (16:39)
[2022-08-05 16:45] LABS: Albumin 3.3 g/dL (3.4-5.0); Bilirubin Total 2.1 mg/dL (0.2-1.0); Potassium 3.5 mmol/L (3.5-5.1); Protein, Total 7.7 g/dL (6.4-8.2)
[2022-08-05] MEDS ORDERED: ACETAMINOPHEN 325 MG TABLET PO PRN (17:23)
[2022-08-05] MEDS ORDERED: ONDANSETRON 4 MG/2 ML VIAL IV PRN (17:23)
--- NOTE | 2022-08-05 17:26 | P.HP ---
Certification for Inpatient Patient admitted to: Inpatient With expected LOS: >2 Midnights Patient will require the following post-hospital care: None Practitioner: I am a practitioner with admitting privileges, knowledge of patient current condition, hospital course, and medical plan of care. Services: Services provided to patient in accordance with Admission requirements found in Title 42 Section 412.3 of the Code of Federal Regulations Patient History Date of Service: 08/05/22 Reason for admission: Right lower extremity cellulitis. History of Present Illness: Patient is a 77-year-old male with a past medical history significant for atrial fibrillation, DVT, HLD, hypertension, prostate cancer, lymphedema who presents with complaint of right lower extremity swelling\redness\pain has been ongoing for the past 2 weeks. Patient reports drainage from right lower extremity wound. Patient rated pain as 8/10 in severity and described pain as burning in quality. Patient reported that he has been seen in the wound care center once in the past. Patient reported that he was in the ER 2 days ago for similar symptoms and was discharged with antibiotics. Patient reported that he went to the wound care center today and was instructed to go to the ER due to of failed outpatient therapy and worsening right lower extremity cellulitis. Patient denies any other signs and symptoms. Symptoms are aggravated or relieved by nothing. Patient decided to present to the hospital as directed by his wound care MD. Allergies bacitracin [From Neosporin ([id number])] Allergy (Verified 08/05/22 17:21) Hives/Rash neomycin [From Neosporin ([id number])] Allergy (Verified 08/05/22 17:21) Hives/Rash polymyxin B [From Neosporin ([id number])] Allergy (Verified 08/05/22 17:21) Hives/Rash Home Medications: Cephalexin [Keflex*] 500 mg PO TID #15 cap 02/25/13 Clindamycin HCl [Cleocin HCl] 300 mg PO TID #15 capsule 02/25/13 Colestipol [Colestid*] 2 gm PO BID #0 tab 02/25/13 Folic Acid [Folic Acid*] 1 mg PO DAILY #0 tab 02/25/13 Olmesartan Medoxomil [Benicar] 40 mg PO DAILY #0 tablet 02/25/13 Rivaroxaban [Xarelto*] 15 mg PO BID #40 tablet 02/25/13 Simvastatin [Zocor*] 40 mg PO BEDTIME #0 tablet 02/25/13 - Past Medical/Surgical History Diabetic: No -: sleep apnea -: high cholesterol -: high blood pressure -: shingles -: hemorrhoidectomy -: gallbaldder -: appendectomy -: orthoscopy right knee miniscus tear - Social History Smoking Status: Never smoker Alcohol use: Yes CD- Drugs: No Caffeine use: Yes Place of Residence: Home Review of Systems General: Unremarkable Eyes: Unremarkable ENT: Unremarkable Respiratory: Unremarkable Cardiovascular: Unremarkable Gastrointestinal: Unremarkable Genitourinary: Unremarkable Musculoskeletal: Pedal edema, Other (RLE pain, BLE swelling) Integumentary: Other (RLE redness\wound ) Neurological: Unremarkable Lymphatics: Unremarkable Physical Examination - Physical Exam General: Alert, In no apparent distress, Oriented x3, Cooperative HEENT: Atraumatic, PERRLA, Mucous membr. moist/pink, EOMI, Sclerae nonicteric Neck: Supple, 2+ carotid pulse no bruit, No LAD, Without JVD or thyroid abnormality Respiratory: Clear to auscultation bilaterally, Normal air movement Cardiovascular: No murmurs, Edema, Irregular heart rate/rhythm Capillary refill: <2 Seconds Gastrointestinal: Normal bowel sounds, Soft and benign, No tenderness, Distended Musculoskeletal: No tenderness, Swelling, Erythema Integumentary: Skin breakdown, Erythema Neurological: Normal speech, Normal tone, Normal affect Lymphatics: No axilla or inguinal lymphadenopathy - Studies Laboratory Data (last 24 hrs) 08/05/22 15:57: PT 15.4 H, INR 1.40, APTT 34.4 08/05/22 15:57: Sodium 134 L, Potassium 3.5, BUN 19 H, Creatinine 1.12, Glucose 103, Total Bilirubin 2.1 H, AST 25, ALT 33, Alkaline Phosphatase 46 08/05/22 15:57: WBC 10.30, Hgb 14.9, Hct 43.5, Plt Count 210 Assessment and Plan - Plan --Right lower extremity cellulitis. Failed outpatient therapy. Right lower extremity with noted wound draining yellow pus. CT right lower extremity to rule out abscess. Blood cultures and wound cultures pending. Infectious disease MD consulted. Patient placed on antibiotics. Will await further recommendations from infectious disease MD. --Acute pain. We will manage pain with current pain regimen. --Atrial fibrillation\history of DVT. Continue Xarelto. --HLD. Continue statin. --Prostate cancer. Patient follow-up with outpatient urologist. Continue supportive care. --Lymphedema. Patient follows with outpatient wound care clinic. Continue supportive care. --Obesity. Likely secondary to excess calories intake. Patient counseled on weight reduction, diet and exercise therapy. --CKD 2. Stable. We will continue to monitor renal functions. --ARISTIDES. CPAP every bedtime. --DVT prophylaxis with Xarelto. Discharge Plan: Home Plan to discharge in: Greater than 2 days - Advance Directives Does patient have a Living Will: No Does patient have a Durable POA for Healthcare: No - Code Status/Comfort Care Code Status Assessed: Yes Physician Review: Patient Assessed, Agree with Above Assessment and Plan Critical Care: No
[2022-08-05] MEDS ORDERED: NA CHLORIDE 0.9% 1,000 ML ONE (17:28)
[2022-08-05 18:25] LABS: Magnesium 2.2 mg/dL (1.6-2.4); Phosphorus 3.7 mg/dL (2.5-4.9)
[2022-08-05] MEDS ORDERED: VANCOMYCIN 1 GM in NA CHLORIDE 0.9% 250 ML IVPB SCH (20:00)
[2022-08-05] MEDS ORDERED: HYDROCODONE/APAP 10/325 TAB ONE (20:14)
[2022-08-05] MEDS: HYDROCODONE/APAP 10/325 TAB PO PRN (20:14)
[2022-08-05] MEDS ORDERED: RIVAROXABAN 15 MG TABLET PO SCH (21:00)
[2022-08-05] MEDS: APIXABAN 5 MG TABLET PO SCH (21:00)
[2022-08-05] MEDS ORDERED: APIXABAN 5 MG TABLET ONE (21:16)
[2022-08-05] MEDS ORDERED: MELATONIN 5 MG TABLET PO ONE (21:16)
[2022-08-05] MEDS: MELATONIN 5 MG TABLET PO PRN (21:19)
[2022-08-05 23:10] LABS: Specific Gravity 1.017 (1.005-1.030); Urine Bilirubin NEGATIVE (Negative); Urine Blood Negative (Negative); Urine Clarity Clear (Clear); Urine Color Yellow (Yellow); Urine Glucose NEGATIVE (Negative); Urine Protein NEGATIVE (Negative); Urine Urobilinogen Normal (Normal)
[2022-08-06] MEDS: CEFEPIME 1 GM in NA CHLORIDE 0.9% 100 ML IV SCH ×3 (01:00→16:33)
[2022-08-06 03:58] LABS: Absolute Lymphocytes (CBC) 1.2 K/uL (0.7-4.9); Hematocrit 39.5 % (39.6-49.0); Lymphocytes % 11.7 % (15.3-44.8); MCV 95.2 fL (80-100); MPV 7.2 fL (7.6-11.3); RBC Red Blood Cell Count 4.15 M/uL (4.33-5.43)
[2022-08-06 04:06] LABS: Potassium 3.6 mmol/L (3.5-5.1)
[2022-08-06] MEDS ORDERED: PNEUMOCOCCAL VACCINE 0.5 ML IMVAC ONE (08:00)
[2022-08-06] MEDS: APIXABAN 5 MG TABLET PO SCH ×2 (08:25→20:33)
[2022-08-06] MEDS ORDERED: POTASSIUM CL SA 10 MEQ TAB PO ONE (09:00)
--- NOTE | 2022-08-06 09:17 | P.CNS ---
Date of Consult: 08/06/22 Chief Complaint: Right lower extremity cellulitis. History of Present Illness: Patient is a 77-year-old male with a past medical history significant for atrial fibrillation, DVT, HLD, hypertension, prostate cancer, lymphedema who presents with complaint of right lower extremity swelling\redness\pain has been ongoing for the past 2 weeks. Patient reports drainage from right lower extremity wound. Patient rated pain as 8/10 in severity and described pain as burning in quality. Patient reported that he has been seen in the wound care center once in the past. Patient reported that he was in the ER 2 days ago for similar symptoms and was discharged with antibiotics. Patient reported that he went to the wound care center today and was instructed to go to the ER due to of failed outpatient therapy and worsening right lower extremity cellulitis. Patient denies any other signs and symptoms. Symptoms are aggravated or relieved by nothing. Patient decided to present to the hospital as directed by his wound care MD. Given above information, ID has been consulted for IV antibiotics recommendations and management for right leg cellulitis Allergies bacitracin [From Neosporin ([id number])] Allergy (Verified 08/05/22 17:21) Hives/Rash neomycin [From Neosporin ([id number]-[id number])] Allergy (Verified 08/05/22 17:21) Hives/Rash polymyxin B [From Neosporin ([id number])] Allergy (Verified 08/05/22 17:21) Hives/Rash Home Medications: Cephalexin [Keflex*] 500 mg PO TID #15 cap 02/25/13 Clindamycin HCl [Cleocin HCl] 300 mg PO TID #15 capsule 02/25/13 Colestipol [Colestid*] 2 gm PO BID #0 tab 02/25/13 Folic Acid [Folic Acid*] 1 mg PO DAILY #0 tab 02/25/13 Olmesartan Medoxomil [Benicar] 40 mg PO DAILY #0 tablet 02/25/13 Rivaroxaban [Xarelto*] 15 mg PO BID #40 tablet 02/25/13 Simvastatin [Zocor*] 40 mg PO BEDTIME #0 tablet 02/25/13 - Past Medical/Surgical History Diabetic: No -: sleep apnea -: high cholesterol -: high blood pressure -: shingles -: Prostate CA benign -: Afib -: DVT left leg -: hemorrhoidectomy -: gallbaldder -: appendectomy -: orthoscopy right knee miniscus tear - Social History Smoking Status: Unknown if ever smoked Alcohol use: Yes CD- Drugs: No Caffeine use: Yes Place of Residence: Home Review of Systems 10-point ROS is otherwise unremarkable Musculoskeletal: Other (bilateral lymphedema and left leg DVT), As per HPI Integumentary: Lesions (Right shah wound clean with serous drainage) Physical Examination Temp Pulse Resp BP Pulse Ox 97.2 F 80 18 130/70 96 08/06/22 04:00 08/06/22 04:00 08/06/22 04:00 08/06/22 04:00 08/06/22 04:00 General: Alert, In no apparent distress, Oriented x3 Respiratory: Clear to auscultation bilaterally Cardiovascular: Normal S1 S2, Edema (bilateral lymphedema and 3+ b/l) Gastrointestinal: Normal bowel sounds Musculoskeletal: Swelling (bilateral lymphedema and 3+ b/l), Erythema (right leg), Warmth (right leg) Integumentary: Skin lesion (right shah wound, clean with serous drainage), Tenderness/swelling (bilateral lymphedema and 3+ b/l), Erythema (right leg), Warmth (right leg), Venous stasis ulcer Neurological: Normal speech, Normal tone, Normal affect Laboratory Data (last 24 hrs) 08/05/22 15:57: Triglycerides 86, Cholesterol 161, HDL Cholesterol 83 H, Choles terol/HDL Ratio 1.94 08/05/22 15:57: Phosphorus 3.7, Magnesium 2.2 08/05/22 15:57: PT 15.4 H, INR 1.40, APTT 34.4 08/05/22 15:57: Sodium 134 L, Potassium 3.5, BUN 19 H, Creatinine 1.12, Glucose 103, Total Bilirubin 2.1 H, AST 25, ALT 33, Alkaline Phosphatase 46 08/05/22 15:57: WBC 10.30, Hgb 14.9, Hct 43.5, Plt Count 210 active medications Acetaminophen (Acetaminophen 325 Mg Tablet) 650 mg PO Q6H PRN PRN Reason: TEMP > 100.4' F Hydrocodone Bitart/Acetaminophen (Hydrocodone/Apap 10/325 Tab) 1 tab PO Q6H PRN PRN Reason: Pain scale 5-7 (Moderate) Last Admin: 08/05/22 20:14 Dose: 1 tab Apixaban (Apixaban 5 Mg Tablet) 5 mg PO BID HO Last Admin: 08/06/22 08:25 Dose: 5 mg Cefepime HCl 1 gm/ Sodium (Chloride) 100 mls @ 200 mls/hr IV Q8HR HO; Protocol Last Admin: 08/06/22 08:26 Dose: 100 mls Vancomycin HCl 2 gm/ Sodium (Chloride) 500 mls @ 250 mls/hr IVPB Q18H HO Melatonin (Melatonin 5 Mg Tablet) 10 mg PO BEDTIME PRN PRN PRN Reason: INSOMNIA Last Admin: 08/05/22 21:19 Dose: 10 mg Ondansetron HCl (Ondansetron 4 Mg/2 Ml Vial) 4 mg IV Q6HP PRN PRN Reason: NAUSEA / VOMITING Sodium Chloride (Flush Normal Saline 10 Ml) 10 ml IV BID [facility] Last Admin: 08/06/22 08:27 Dose: 10 ml Imagings Data: 08/05 CT lower extremity: Pending for result - Problems (1) Right leg wound and cellulitis Plan: Cultures: - 08/05 Right leg wound: Pending for result - 08/05 BC: Pending for result - 08/05 UA: Negative Antibiotics: - Current on IV Cefepime (08/06- ) and Vancomycin (08/05- ) Recommendations: - Continue IV Cefepime and Vancomycin for total of 2 weeks duration - Please apply xeroform and secure with gauze and kerlix daily, change when soiled - ID will recommend antibiotics drug of choice when cultures are available Conclusions/Impression: - Right lower extremity cellulitis: On IV cefepime and Vancomycin for total of 14 days - Mild protein calorie malnutrition - Acute pain - Atrial fibrillation - DVT - HLD - Prostate cancer - Lymphedema - Obesity - CKD 2 - ARISTIDES ID will monitor the patient closely for signs of infection with fever and WBC trends Case has been discussed with Dr. Correa N Thank you Dr. [place] for consultation
[2022-08-06] MEDS: VANCOMYCIN 2 GM in NA CHLORIDE 0.9% 500 ML IVPB SCH (09:40)
[2022-08-06] MEDS: HYDROCODONE/APAP 10/325 TAB PO PRN (09:41)
[2022-08-06] MEDS ORDERED: HYDROCORTISONE SUC 100 MG INJ IV ONE (11:06)
[2022-08-06] MEDS ORDERED: ALBUMIN HUMAN 25% 12.5 GM, FUROSEMIDE 100 MG in NA CHLORIDE 0.9% 40 ML IV SCH (12:00)
--- NOTE | 2022-08-06 13:05 | CON ---
Date of Consultation: 08/05/2022 Reason For Consultation: Right lower leg cellulitis. History Of Present Illness: The patient is a 77-year-old gentleman whom I saw in the [facility] yesterday. The patient initially had worsening of right leg redness and swelling and warmth ov er the last week and developed 2 blisters which popped and the patient was supposed to see Dr. Bridges, but the redness was getting worse, he came to our clinic. The patient had been seen 2 days prior in the emergency room, was discharged on oral antibiotics and the patient states that he had quickly go tten worse, therefore he had failed outpatient therapy. He denies any sore throat, runny nose, cough , headaches, dizziness, chest pain. No current fever or chills and no active purulent discharge. Review of Systems: Otherwise unremarkable. Past Medical History: Significant for morbid obesity, high cholesterol, sleep apnea, hypertension, s hingles. Past Surgical History: Hemorrhoidectomy, cholecystectomy, appendectomy, and right knee arthroscopy. Allergies: INCLUDE BACITRACIN, NEOMYCIN, AND POLYMYXIN. Social History: The patient currently does not smoke or drink. Family History: Noncontributory. Physical Examination: Vital Signs: Stable. He is currently afebrile. General: He is awake, alert, oriented x3. Head and Neck: No masses. Chest: Clear. Heart: S1, S2. Abdomen: Soft. Extremities: The patient has lymphedema on both lower extremities. There is erythema and warmth in the right lower extremity extending from just above the knee to the foot with redness, erythema, warm th, and tenderness. There are 2 wounds present, which have been documented in the Wound Care note wi th proper measurements, but they are full-thickness in nature. There is no active purulent discharge . Laboratory Data: White count is 9.8. There is no left shift at this time. Chemistry reviewed. CT scan of the leg results are pending. The patient's lactic acid was 2.8 initially and repeat was 0.9. Assessment: A 77-year-old gentleman with multiple medical problems with lymphedema, cellulitis, refr actory to outpatient therapy. Recommendation: I would recommend at least 2 weeks of IV antibiotics, get a PICC line. His redness and swelling have improved since yesterday. Rubi for the wound care and the patient can follow up in the [facility] upon discharge. Plan of care discussed in detail with Dr. [place]. TAMIKO/LISA Voice ID: [id number] Report ID: [id number]
--- NOTE | 2022-08-06 15:22 | EKG ---
Test Date: 2022-08-05 Test Time: 16:11:36 Substation Operator Automatic: LUIS MEASUREMENT RESULTS: Intervals: Rate: 93 TN: QRSD: 146 QT: 420 QTc: 522 [place]: P: TN: QRS: -38 T: 49 INTERPRETIVE STATEMENTS: Atrial fibrillation with premature ventricular or aberrantly conducted complexes Left axis deviation Nonspecific intraventricular block Abnormal ECG Compared to ECG 05/11/2022 14:38:46 Ventricular premature complex(es) now present Electronically Signed On 08-06-22 15:19:58 MOSAIC TILER by Graham Maria
[2022-08-06] MEDS: MELATONIN 5 MG TABLET PO PRN (20:33)
--- NOTE | 2022-08-06 21:23 | RAD REPORT ---
EXAM DESCRIPTION: CT - Lower Ext Wo Con W/ Mpr - 08/06/2022 12:40 am CLINICAL HISTORY: R O Abscess of RLE COMPARISON: No comparisons FINDINGS: Significant skin thickening and subcutaneous edema is present in the left lower extremity. Peripheral vascular calcifications are noted. No fracture is seen. Knee arthroplasty noted. IMPRESSION: Diffuse skin thickening and subcutaneous edema but no abscess identified within the limi tations of a noncontrast CT. All CT scans are performed using dose optimization technique as appropriate and may include automate d exposure control or mA/KV adjustment according to patient size.
[2022-08-07] MEDS: CEFEPIME 1 GM in NA CHLORIDE 0.9% 100 ML IV SCH ×3 (01:00→16:08)
[2022-08-07] MEDS: HYDROCODONE/APAP 10/325 TAB PO PRN ×2 (01:08→20:34)
[2022-08-07 03:31] LABS: Potassium 3.3 mmol/L (3.5-5.1)
[2022-08-07] MEDS: VANCOMYCIN 2 GM in NA CHLORIDE 0.9% 500 ML IVPB SCH ×2 (03:51→21:24)
[2022-08-07] MEDS: APIXABAN 5 MG TABLET PO SCH ×2 (08:20→20:34)
[2022-08-07] MEDS ORDERED: POTASSIUM CL SA 10 MEQ TAB PO ONE (09:00)
--- NOTE | 2022-08-07 09:10 | P.PN ---
Subjective Date of Service: 08/07/22 Chief Complaint: Right lower extremity cellulitis. Patient lying in bed with and friend at the bedside. No major events upon examination Physical Examination - Vital Signs Temperature: 97.2 F Blood Pressure: 135/61 Pulse: 65 Respirations: 17 Pulse Ox (%): 95 - Physical Exam General: Alert, In no apparent distress, Oriented x3 Respiratory: Clear to auscultation bilaterally Cardiovascular: Normal S1 S2, Edema (bilateral lymphedema and 3+ b/l) Gastrointestinal: Normal bowel sounds Musculoskeletal: Swelling (bilateral lymphedema and 3+ b/l), Erythema (right leg), Warmth (right leg) Integumentary: Skin lesion (right shah wound, clean with serous drainage), Tenderness/swelling (bilateral lymphedema and 3+ b/l), Erythema (right leg), Warmth (right leg), Venous stasis ulcer Neurological: Normal speech, Normal tone, Sensation intact, Normal affect - Studies active medications Acetaminophen (Acetaminophen 325 Mg Tablet) 650 mg PO Q6H PRN PRN Reason: TEMP > 100.4' F Hydrocodone Bitart/Acetaminophen (Hydrocodone/Apap 10/325 Tab) 1 tab PO Q6H PRN PRN Reason: Pain scale 5-7 (Moderate) Last Admin: 08/07/22 01:08 Dose: 1 tab Apixaban (Apixaban 5 Mg Tablet) [address] [facility] Last Admin: 08/07/22 08:20 Dose: 5 mg Cefepime HCl 1 gm/ Sodium (Chloride) 100 mls @ 200 mls/hr IV Q8HR [facility]; Protocol Last Admin: 08/07/22 08:20 Dose: 100 mls Vancomycin HCl 2 gm/ Sodium (Chloride) 500 mls @ 250 mls/hr IVPB Q18H [facility] Last Admin: 08/07/22 03:51 Dose: 500 mls Melatonin (Melatonin 5 Mg Tablet) 10 mg PO BEDTIME PRN PRN PRN Reason: INSOMNIA Last Admin: 08/06/22 20:33 Dose: 10 mg Ondansetron HCl (Ondansetron 4 Mg/2 Ml Vial) 4 mg IV Q6HP PRN PRN Reason: NAUSEA / VOMITING Sodium Chloride (Flush Normal Saline 10 Ml) [address] [facility] Last Admin: 08/07/22 08:22 Dose: 10 ml Microbiology Data (last 24 hrs): Microbiology 08/05/22 15:31 Wound - Right Lower Leg Gram Stain - Final 08/05/22 15:31 Wound - Right Lower Leg Culture & Sensitivity - Preliminary Gram Neg Nima 08/05/22 15:59 Blood - Blood Aerobic Blood Culture - Preliminary No growth in 24 hours. 08/05/22 15:59 Blood - Blood Anaerobic Blood Culture - Preliminary No growth in 24 hours. 08/05/22 15:57 Blood - Blood Aerobic Blood Culture - Preliminary No growth in 24 hours. 08/05/22 15:57 Blood - Blood Anaerobic Blood Culture - Preliminary No growth in 24 hours. Assessment And Plan - Current Problems (Diagnosis) (1) Right leg wound and cellulitis Plan: Cultures: - 08/05 Right leg wound: Gram Neg Rods: Culture pending - 08/05 BC: Negative - 08/05 UA: Negative Antibiotics: - Current on IV Cefepime (08/06- ) and Vancomycin (08/05- ) Recommendations: - Continue IV Cefepime and Vancomycin for total of 2 weeks duration - Please apply xeroform and secure with gauze and kerlix daily, change when soiled - ID will recommend antibiotics drug of choice when cultures are available - Plan - Right lower extremity cellulitis: On IV cefepime and Vancomycin for total of 14 days - Stasis dermatitis - Mild protein calorie malnutrition - Acute pain - Atrial fibrillation - DVT - HLD - Prostate cancer - Lymphedema - Obesity - CKD 2 - ARISTIDES ID will monitor the patient closely for signs of infection with fever and WBC trends Case has been discussed with Dr. Correa, N Physician Review: Patient Assessed, Agree with Above Assessment and Plan
[2022-08-07] MEDS: SILVER SULFADIAZINE 1% 50 GM TOP SCH (10:00)
[2022-08-07] MEDS ORDERED: SILVER SULFADIAZINE 1% 50 GM TOP SCH ×2 (10:00)
[2022-08-07] MEDS ORDERED: POTASSIUM 25 MEQ EFFERV TAB PO ONE (11:08)
[2022-08-07] MEDS ORDERED: HYDROCORTISONE SUC 100 MG INJ IV ONE (11:09)
--- NOTE | 2022-08-07 11:41 | PN ---
Date of Progress Note: 08/07/2022 Subjective: The patient is awake, alert, feels better. Vitals stable. Afebrile. White count is 9. 8 yesterday. Right leg wound is growing out gram-negative titus. Sensitivity is pending. Objective: Please note that the edema, erythema have markedly decreased. There is some blistering o f epidermis in the anterior portion leg which may open up. There is no purulence present at this juan manuel e. Assessment: Right leg cellulitis and lymphedema with infected wound. Recommendations: Continue IV antibiotics. Adjust the antibiotics based on the culture reports. The patient will need at least 2 weeks of IV antibiotics. Plan of care discussed with patient and Dr. Jareth corbin. /LISA Voice ID: [id number] Report ID: [id number]
[2022-08-07] MEDS ORDERED: ALBUMIN HUMAN 25% 12.5 GM, FUROSEMIDE 100 MG in NA CHLORIDE 0.9% 40 ML IV SCH (12:00)
--- NOTE | 2022-08-07 18:06 | P.PN ---
Date of Service: 08/06/22 Subjective Patient's erythema has improved. His swelling has improved as well. Continue with antibiotic therapy. Recommendation for IV antibiotics for 2 weeks. We will continue to monitor as an outpatient. Physical Examination - Vitals reviewed - Physical Exam General: Alert, In no apparent distress, Oriented x3, Cooperative Respiratory: Clear to auscultation bilaterally Cardiovascular: No murmurs, Edema, Irregular heart rate/rhythm Gastrointestinal: Normal bowel sounds, Soft and benign, No tenderness, Distended Musculoskeletal: No tenderness, Swelling, Erythema Integumentary: Skin breakdown, Erythema Neurological: Normal speech, Normal tone, Normal affect Assessment and Plan - Assessment --Right lower extremity cellulitis --Atrial fibrillation\history of DVT --HLD --Prostate cancer --Lymphedema --Obesity --CKD 2 --ARISTIDES - Plan 1. Continue with IV antibiotic 2. Continue with anticoagulation and medication with rate control 3. Wound care consultation/surgical consultation appreciated 4. Heplock IV 5. Monitor CBC 6. Strict blood sugar monitoring 7. Pain control 8. GI and DVT prophylaxis
--- NOTE | 2022-08-07 18:07 | P.PN ---
Date of Service: 08/07/22 Subjective Patient continues to improve. Patient is wanting to go home today but cultures are still pending. Physical Examination - Vitals reviewed - Physical Exam General: Alert, In no apparent distress, Oriented x3, Cooperative Respiratory: Clear to auscultation bilaterally Cardiovascular: No murmurs, Edema, Irregular heart rate/rhythm Gastrointestinal: Normal bowel sounds, Soft and benign, No tenderness, Distended Musculoskeletal: No tenderness, Swelling, Erythema Integumentary: Skin breakdown, Erythema: Significant edema of the lower extremity also noted Neurological: No focal deficits Assessment and Plan - Assessment --Right lower extremity cellulitis --Atrial fibrillation\history of DVT --HLD --Prostate cancer --Lymphedema --Obesity --CKD 2 --ARISTIDES - Plan 1. Continue with IV antibiotic 2. Continue with anticoagulation and medication with rate control 3. Wound care consultation/surgical consultation appreciated 4. Heplock IV 5. Monitor CBC 6. Strict blood sugar monitoring 7. Pain control 8. GI and DVT prophylaxis
[2022-08-07] MEDS ORDERED: LOPERAMIDE HCL 2 MG CAPSULE PO ONE (19:29)
[2022-08-07] MEDS: MELATONIN 5 MG TABLET PO PRN (20:35)
[2022-08-08] MEDS: CEFEPIME 1 GM in NA CHLORIDE 0.9% 100 ML IV SCH ×2 (01:00→08:08)
[2022-08-08] MEDS ORDERED: NA CHLORIDE 0.9% 100 ML ONE (01:03)
[2022-08-08] MEDS ORDERED: CEFEPIME 1 GM/VIAL ONE (01:05)
[2022-08-08 06:04] LABS: Absolute Lymphocytes (CBC) 1.2 K/uL (0.7-4.9); Hematocrit 37.7 % (39.6-49.0); Lymphocytes % 16.4 % (15.3-44.8); MCV 94.1 fL (80-100); MPV 6.9 fL (7.6-11.3); RBC Red Blood Cell Count 4.01 M/uL (4.33-5.43)
[2022-08-08 06:11] VITALS: BMI 37.4
[2022-08-08] MEDS ORDERED: POTASSIUM 25 MEQ EFFERV TAB PO ONE (08:00)
[2022-08-08] MEDS: APIXABAN 5 MG TABLET PO SCH (08:09)
[2022-08-08] MEDS: SILVER SULFADIAZINE 1% 50 GM TOP SCH (08:09)
[2022-08-08] MEDS: HYDROCODONE/APAP 10/325 TAB PO PRN (08:18)
[2022-08-08 09:43] VITALS: O2SAT 95
[2022-08-08] MEDS ORDERED: ALBUMIN HUMAN 25% 12.5 GM, FUROSEMIDE 100 MG in NA CHLORIDE 0.9% 40 ML IV SCH (12:00)
--- NOTE | 2022-08-08 13:44 | PN ---
Subjective: The patient is lying in bed. No new acute event. Denies any headache, nausea, vomiting , chest pain, abdominal pain, constipation, or diarrhea. Objective: Vital signs: Reviewed. Lungs: Basal crackles. Heart: S1, S2. Regular. Abdomen: Soft, nontender. Bowel sounds present. Extremity: Right leg 2+ edema. Wound noted. Laboratory Data: Shows WBC 7.3, hemoglobin 13, platelets are 204. Chemistry shows BUN of 18, creati nine 0.8. Micro data shows Serratia marcescens and right wound cultures. The patient currently on c efepime and vancomycin. Assessment And Plan: Right lower extremity cellulitis, stasis dermatitis stasis ulcers, anemia of ch ronic disease. Continue supportive care. Keep leg elevated. Total course of antibiotic 2 weeks. NF/MODL Voice ID: [id number] Report ID: [id number]
[2022-08-08] MEDS ORDERED: Levofloxacin500mg IV 500 MG/100 ML BAG IV ONE (15:05)
--- NOTE | 2022-08-08 16:09 | P.DS ---
Discharge Date: 08/08/22 Disposition: ROUTINE DISCHARGE Discharge Condition: GOOD Reason for Admission: Right lower extremity cellulitis. Consultations: General surgery Infectious disease Brief History of Present Illness: Patient is a 77-year-old male with a past medical history significant for atrial fibrillation, DVT, HLD, hypertension, prostate cancer, lymphedema who presents with complaint of right lower extremity swelling\redness\pain has been ongoing for the past 2 weeks. Patient reports drainage from right lower extremity wound. Patient rated pain as 8/10 in severity and described pain as burning in quality. Patient reported that he has been seen in the wound care center once in the past. Patient reported that he was in the ER 2 days ago for similar symptoms and was discharged with antibiotics. Patient reported that he went to the wound care center today and was instructed to go to the ER due to of failed outpatient therapy and worsening right lower extremity cellulitis. Patient denies any other signs and symptoms. Symptoms are aggravated or relieved by nothing. Patient decided to present to the hospital as directed by his wound care MD. Hospital Course: Patient was admitted to the hospital and treated with IV hydration. Patient was given albumin and Lasix and patient has lost 7+ pounds. Patient's swelling has improved quite a bit. Continue with antibiotic therapy General surgery recommended IV Levaquin for 14 days. Similar bioavailability orally and intravenously but we will go ahead and go with the recommendations. Patient was also diuresed pretty aggressively. Patient is doing well clinically and at this time patient is stable for discharge with outpatient follow-up. Patient scheduled for cardiac cath next week and we spoke with cardiology to update them on patient's clinical status. Patient was anxious to go home throughout his hospital stay. However, we did talk to him about the fact that we did not have culture results until this morning. Patient is clinically doing well and stable for discharge with outpatient follow-up. Vital Signs/Physical Exam: Temp Pulse Resp BP Pulse Ox 96.8 F 72 16 132/74 94 08/08/22 12:00 08/08/22 12:00 08/08/22 12:00 08/08/22 12:00 08/08/22 12:00 General: Alert, In no apparent distress, Oriented x3 Laboratory Data at Discharge: WBC 7.30 K/uL (4.3-10.9) 08/08/22 05:50 Hgb 13.0 g/dL (13.6-17.9) L 08/08/22 05:50 Hct 37.7 % (39.6-49.0) L 08/08/22 05:50 Plt Count 204 K/uL (152-406) 08/08/22 05:50 PT 15.4 SECONDS (9.5-12.5) H 08/05/22 15:57 INR 1.40 08/05/22 15:57 APTT 34.4 SECONDS (24.3-36.9) 08/05/22 15:57 Sodium 137 mmol/L (136-145) 08/08/22 05:50 Potassium 3.4 mmol/L (3.5-5.1) L D 08/08/22 14:27 BUN 18 mg/dL (7-18) 08/08/22 05:50 Creatinine 0.89 mg/dL (0.70-1.30) 08/08/22 05:50 Glucose 122 mg/dL (74-106) H 08/08/22 05:50 Phosphorus 3.7 mg/dL (2.5-4.9) 08/05/22 15:57 Magnesium 2.2 mg/dL (1.6-2.4) 08/05/22 15:57 Total Bilirubin 2.1 mg/dL (0.2-1.0) H 08/05/22 15:57 AST 25 U/L (15-37) 08/05/22 15:57 ALT 33 U/L (16-61) 08/05/22 15:57 Alkaline Phosphatase 46 U/L (45-117) 08/05/22 15:57 Triglycerides 86 mg/dL (<150) 08/05/22 15:57 Cholesterol 161 mg/dL (<200) 08/05/22 15:57 HDL Cholesterol 83 mg/dL (40-60) H 08/05/22 15:57 Cholesterol/HDL Ratio 1.94 08/05/22 15:57 Home Medications: Colestipol [Colestid*] 2 gm PO BID #0 tab 02/25/13 Folic Acid [Folic Acid*] 1 mg PO DAILY #0 tab 02/25/13 Olmesartan Medoxomil [Benicar] 40 mg PO DAILY #0 tablet 02/25/13 Rivaroxaban [Xarelto*] 15 mg PO BID #40 tablet 02/25/13 Simvastatin [Zocor*] 40 mg PO BEDTIME #0 tablet 02/25/13 Hydrocodone 10/APAP 325 [[place] 10/325*] 1 tab PO Q6H PRN #20 tab 08/08/22 Hydrocodone 5/APAP 325 [[place] 5/325] 1 tab PO Q6H PRN #20 tab 08/08/22 Melatonin 10 mg PO DAILY #30 tab 08/08/22 Silver Sulfadiazine Crm [Silvadene*] 1 appl TOP DAILY #1 jar 08/08/22 New Medications: Melatonin 10 mg PO DAILY #30 tab Hydrocodone 10/APAP 325 [[place] 10/325*] 1 tab PO Q6H PRN #20 tab PRN Reason: Pain Scale 5-7 (Moderate) Hydrocodone 5/APAP 325 [[place] 5/325] 1 tab PO Q6H PRN #20 tab PRN Reason: Pain Silver Sulfadiazine Crm [Silvadene*] 1 appl TOP DAILY #1 jar Physician Discharge Instructions: -DC IV and DC home -Follow-up with PCP in 1 to 2 weeks -Follow-up with Surgery in 1 to 2 weeks -Would also consider follow-up with vascular surgery, Dr. 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 Colorado at [phone] if any questions regarding hospital stay -Please call nursing station at [phone] if any nursing or medication questions -Return to the emergency room if symptoms worsen -Levaquin 750 mg IVPB daily for 14 days at discharge Diet: AHA Activity: Fall precautions Followup: Choco Snider MD [Primary Care Provider] - 1-2 Weeks (Call for appointment.) Time spent managing pt's care (in minutes): 35
[2022-08-08 16:45] VITALS: BP 151/57; TEMP 97.3
--- NOTE | 2022-08-08 22:10 | RAD REPORT ---
EXAM DESCRIPTION: RAD - Chest Single View - 08/08/2022 3:23 am CLINICAL HISTORY: PICC placement TECHNIQUE: Frontal view of the chest. COMPARISON: No relevant prior studies available. FINDINGS: Lungs: Unremarkable. No consolidation.Pleural space: Unremarkable. No pneumothorax .Heart: The cardiac silhouette is enlarged.Mediastinum: Unremarkable.Bones/joints: Unremarkable .Vasculature: Thoracic aortic atherosclerosis.Tubes, lines and devices: Left upper extremity PICC tip projects over the proximal superior vena cava. IMPRESSION: Left upper extremity PICC tip projects over the proximal superior vena cava. Electronically signed by: Christoph Krueger MD 08/08/2022 3:32 AM IRONER Due to temporary technical issues with the PACS/Fluency reporting system, reports are being signed by the in house radiologists without review as a courtesy to insure prompt reporting. The interpreting radiologist is fully responsible for the content of the report.
== END 2022-08-08 17:07 | disposition home health service (06) | DRG 603 ==
LOC: ER 14:31 → ERHOLD 17:18 → 4TH 22:10
PROVIDERS: ADMIT Hospitalist; ATTEND Hospitalist
PROC: 5A09357 Assistance with Respiratory Ventilation, Less than 24 Consecutive Hours, Continuous Positive Airway Pressure (ICD-10-PCS; principal; 2022-08-05)
PROC: 02HV33Z Insertion of Infusion Device into Superior Vena Cava, Percutaneous Approach (ICD-10-PCS; 2022-08-08)
DX: L03.115 Cellulitis of right lower limb (principal); E44.1 Mild protein-calorie malnutrition; I48.91 Unspecified atrial fibrillation; E78.5 Hyperlipidemia, unspecified; I89.0 Lymphedema, not elsewhere classified; G47.33 Obstructive sleep apnea (adult) (pediatric); I12.9 Hypertensive chronic kidney disease with stage 1 through stage 4 chronic kidney disease, or unspecified chronic kidney disease; N18.2 Chronic kidney disease, stage 2 (mild); D63.1 Anemia in chronic kidney disease; I87.2 Venous insufficiency (chronic) (peripheral); E66.09 Other obesity due to excess calories; Z88.8 Allergy status to other drugs, medicaments and biological substances; Z88.1 Allergy status to other antibiotic agents; Z68.38 Body mass index [BMI] 38.0-38.9, adult; Z79.01 Long term (current) use of anticoagulants; Z85.46 Personal history of malignant neoplasm of prostate; Z90.49 Acquired absence of other specified parts of digestive tract; Z79.899 Other long term (current) drug therapy; Z91.048 Other nonmedicinal substance allergy status; Z86.718 Personal history of other venous thrombosis and embolism; Z20.822 Contact with and (suspected) exposure to COVID-19
CPT/HCPCS: 36415; 36569; 71045; 73700; 76377; 80048; 80053; 80061; 80202; 81003; 83036; 83605; 83735; 83880; 84100; 84132; 85025; 85610; 85730; 87040; 87070; 87077; 87186; 87205; 87811; 93005; 94660; 96365; 96366; 96372; 96375; 97597; 99283; J0690; J0692; J1720; J2405; J3370; J7030; J7040; P9047

== ENCOUNTER 2022-08-15 10:51 | Emergency (ER) | payer OTHER ==
--- OUTSIDE RECORDS SUMMARY | 2022-08-15 10:54 | XMS REPORT | Continuity of Care Document ---
:1945 Author Organization [facility] t Address [address] [place] [address] [address] [place] [address] Care Team Providers Name Role Phone DUNCAN RAMIREZ Attending Clinician Unavailable TELLY Attending Clinician Unavailable TELLY Admitting Clinician Unavailable Payers Payer Name Policy Type Policy Number Effective Date Expiration Date Cedric franklin FRANCISCO (PPO) [id number] 2022 00:00:00 [place]IC[place]: [id number] 2011 [employer] 00:00:00 AETNA [id number] 2002 00:00:00 Problems Condition Condition Condition Status Onset Resolution Last Treating Co mments Source Name Details Category Date Date Treatment Clinician Date Atrial Atrial Problem Active 2021-06 [facility] fibrillati Fibrillati 1-29 Co mmuni on on [...] Hospita Clinics Sleep Sleep Problem Active 2021-06 [facility] apnea Apnea 0-03 Communi 00:00: ty 00 [facility] Heart Heart Problem Active 2021-06 [facility] murmur Murmur 0-03 Communi 00:00: ty 00 [facility] History of History of Problem Active 2021-06 S weencristopher deep vein Deep Vein 0-03 Comm uni thrombosis Thrombosis 00:00: ty 00 [facility] Hyperchole Hyperchole Problem Active 2021-06 S weeny sterolemia sterolemia 0-03 Co mmuni 00:00: ty 00 [facility] Erectile Erectile Problem Active 2021-06 Sween y dysfunctio Dysfunctio 0-03 Co mmuni n n 00:00: ty 00 [facility] Chronic Chronic Problem Active 2021-06 [facility] pain Pain 0-03 Communi syndrome Syndrome 00:00: ty 00 [facility] History of History of Problem Active S weeny SARS-CoV-2 SARS-CoV-2 9-05 Co mmuni 00:00: ty 00 [facility] Body mass Body Mass Problem Active Swe garrett index 40+ Index 40+ 1-05 Comm uni - severely - Severely 00:00: ty obese Obese 00 [facility] Benign Benign Problem Active [facility] prostatic Prostatic 7-14 Comm uni hyperplasi Hyperplasi 00:00: ty a a 00 [facility] Carcinoma Carcinoma Problem Active Swe garrett of of 3-23 Communi prostate Prostate 00:00: ty 00 [facility] Raised Raised Problem Active 2019-06 [facility] prostate Prostate 1-09 Commun i specific Specific 00:00: ty antigen Antigen 00 [facility] [id number] Other Problem Common synovitis Spirit [facility] tenosynovi [facility] ankle and Medical foot [place] [id number] Cancer of Problem Comm on prostate Spirit with [facility] intermedia [facility] recurrence Medica l risk Center (stage T2b-c or Jennifer 7 or PSA 10-20) [id number] BPH loc w Problem Com mon urin Spirit obs/[facility] [id number] Prostate Problem Comm on cancer [facility] [id number] 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 Social History Social Habit Start Date Stop Date Quantity Comments Source History of Tobacco Use Co mmon [facility] Sex Assigned At Com juan miguel [facility] Smoking Status Start Date Stop Date Source Former Smoker 2022-07-09 00:00:00 2022-07-09 00:00:00 Common S [facility] Medications Ordered Filled Start Stop Current Ordering Indication Dosage Frequency Signature Comments Components Source Medication Medication Date Date Medication? Clinician (SIG) Name Name Eliquis 5 Eliquis 5 No Eliquis 5 [facility] mg tablet mg tablet mg tablet Communi Take 1 Take 1 Take 1 ty tablet BID tablet BID tablet BID Hospita PO PO PO l Clinics hydrochloro hydrochloro No 1 Q1D hydrochlor [facility] thiazide thiazide othiazide Co mmuni 12.5 mg 12.5 mg 12.5 mg ty tablet Take tablet Take tablet Hospita 1 tablet 1 tablet Take 1 l every day every day tablet Cli nics by oral by oral every day route. route. by oral route. hydrocodone hydrocodone No 1 Q6H hydrocodon [facility] 10 10 e 10 Communi mg-acetamin mg-acetamin [...] by oral route. potassium potassium No potassium [facility] chloride ER chloride ER chloride Communi 20 mEq 20 mEq ER 20 mEq ty tablet,exte tablet,exte tablet,ext Hospita nded nded ended l release(par release(par release([facility] t/cryst) t/cryst) rt/cryst) Take 1 Take 1 Take 1 tablet tablet tablet daily by daily by daily by mouth mouth mouth simvastatin simvastatin No simvastati [facility] 40 mg 40 mg n 40 mg Communi tablet TAKE tablet TAKE tablet ty 1 TABLET BY 1 TABLET BY TAKE 1 Hospita MOUTH EVERY MOUTH EVERY TABLET BY l DAY AT DAY AT MOUTH Clinics NIGHT NIGHT EVERY DAY AT NIGHT trazodone trazodone No trazodone [facility] 50 mg 50 mg 50 mg Communi tablet TAKE tablet TAKE tablet ty 1 TABLET BY 1 TABLET BY TAKE 1 Hospita MOUTH MOUTH TABLET BY l EVERYDAY AT EVERYDAY AT MOUTH Clinics BEDTIME BEDTIME EVERYDAY AT BEDTIME colestipol colestipol No colestipol [facility] 1 gram 1 gram 1 gram Communi tablet tablet tablet ty PLEASE SEE PLEASE SEE PLEASE SEE Hospita ATTACHED ATTACHED ATTACHED l FOR FOR FOR Clinics DETAILED DETAILED DETAILED DIRECTIONS DIRECTIONS DIRECTIONS Eliquis 5 Eliquis 5 No Eliquis 5 [facility] mg tablet mg tablet mg tablet Communi Take 1 Take 1 Take 1 ty tablet BID tablet BID tablet BID Hospita PO PO PO l Clinics hydrochloro hydrochloro No hydrochlor [facility] thiazide thiazide othiazide Co mmuni 12.5 mg [...] by oral route. potassium potassium No potassium [facility] chloride ER chloride ER chloride Communi 20 mEq 20 mEq ER 20 mEq ty tablet,exte tablet,exte tablet,ext Hospita nded nded ended l release(par release(par release([facility] t/cryst) t/cryst) rt/cryst) Take 1 Take 1 Take 1 tablet tablet tablet daily by daily by daily by mouth mouth mouth simvastatin simvastatin No simvastati [facility] 40 mg 40 mg n 40 mg Communi tablet TAKE tablet TAKE tablet ty 1 TABLET BY 1 TABLET BY TAKE 1 Hospita MOUTH EVERY MOUTH EVERY TABLET BY l DAY AT DAY AT MOUTH Clinics NIGHT NIGHT EVERY DAY AT NIGHT trazodone trazodone No trazodone [facility] 50 mg 50 mg 50 mg Communi tablet TAKE tablet TAKE tablet ty 1 TABLET BY 1 TABLET BY TAKE 1 Hospita MOUTH MOUTH TABLET BY l EVERYDAY AT EVERYDAY AT MOUTH Clinics BEDTIME BEDTIME EVERYDAY AT BEDTIME azelastine azelastine No azelastine [facility] 137 mcg 137 mcg 137 mcg Commun i (0.1 %) (0.1 %) (0.1 %) ty nasal spray nasal spray nasal [facility] aerosol aerosol spray l SPRAY 1 SPRAY 1 aerosol Clinic s SPRAYS (137 SPRAYS (137 SPRAY 1 MCG) IN MCG) IN SPRAYS EACH EACH (137 MCG) NOSTRIL BY NOSTRIL BY IN EACH INTRANASAL INTRANASAL NOSTRIL BY ROUTE ONCE ROUTE ONCE INTRANASAL DAILY DAILY ROUTE ONCE NEEDED NEEDED DAILY NEEDED colestipol colestipol No colestipol [facility] 1 gram 1 gram 1 gram Communi [...] route. meloxicam meloxicam No 1 Q1D meloxicam [facility] 15 mg 15 mg 15 mg Communi tablet Take tablet Take tablet ty 1 tablet 1 tablet Take 1 Hospi ta every day every day tablet l by oral by oral every day Clin ics route. route. by oral route. simvastatin simvastatin No 1 Q1D simvastati [facility] 40 mg 40 mg n 40 mg Communi tablet Take tablet Take tablet ty 1 tablet 1 tablet Take 1 Hospi ta every day every day tablet l by oral by oral every day Clin ics route in route in by oral the the route in evening. evening. the evening. trazodone trazodone No 1 Q1D trazodone [facility] 50 mg 50 mg 50 mg Communi tablet Take tablet Take tablet ty 1 tablet 1 tablet Take 1 Hospi ta every day every day tablet l by oral by oral every day Clin ics route as route as by oral directed. directed. route as directed. azelastine azelastine No azelastine [facility] 137 mcg 137 mcg 137 mcg Commun [...] NEEDED DAILY NEEDED colestipol colestipol No colestipol [facility] 1 gram 1 gram 1 gram Communi [...] route. meloxicam meloxicam No 1 Q1D meloxicam [facility] 15 mg 15 mg 15 mg Communi tablet Take tablet Take tablet ty 1 tablet 1 tablet Take 1 Hospi ta every day every day tablet l by oral by oral every day Clin ics route. route. by oral route. simvastatin simvastatin No 1 Q1D simvastati [facility] 40 mg 40 mg n 40 mg Communi tablet Take tablet Take tablet ty 1 tablet 1 tablet Take 1 Hospi ta every day every day tablet l by oral by oral every day Clin ics route in route in by oral the the route in evening. evening. the evening. trazodone trazodone No 1 Q1D trazodone [facility] 50 mg 50 mg 50 mg Communi tablet Take tablet Take tablet ty 1 tablet 1 tablet Take 1 Hospi ta every day every day tablet l by oral by oral every day Clin ics route as route as by oral directed. directed. route as directed. cephalexin cephalexin No 1capsul BID cephalexin [facility] 500 mg 500 mg e(s) 500 mg Communi capsule capsule capsule ty Take 1 Take 1 Take 1 Hospita capsule capsule capsule l twice a day twice a day twice a Clinics by oral by oral day by route. route. oral route. colestipol colestipol No colestipol [facility] 1 gram 1 gram 1 gram Communi tablet TAKE tablet TAKE tablet ty 2 TABLETS 2 TABLETS TAKE 2 Hos truong (2 G TOTAL) (2 G TOTAL) TABLETS (2 l BY MOUTH BY MOUTH G TOTAL) Cli nics DAILY TO DAILY TO BY MOUTH HELP HELP DAILY TO CONTROL CONTROL HELP BOWELS. BOWELS. CONTROL BOWELS. hydrocodone hydrocodone No hydrocodon [facility] 10 10 e 10 Communi mg-acetamin mg-acetamin [...] Turmeric simvastatin simvastatin No 1 Q1D simvastati [facility] 40 mg 40 mg n 40 mg Communi tablet Take tablet Take tablet ty 1 tablet 1 tablet Take 1 Hospi ta every day every day tablet l by oral by oral every day Clin ics route in route in by oral the the route in evening. evening. the evening. trazodone trazodone No 1 Q1D trazodone [facility] 50 mg 50 mg 50 mg Communi [...] losartan No losartan colestipol colestipol No colestipol [facility] 1 gram 1 gram 1 gram Communi tablet tablet tablet ty PLEASE SEE PLEASE SEE PLEASE SEE Hospita ATTACHED ATTACHED ATTACHED l FOR FOR FOR Clinics DETAILED DETAILED DETAILED DIRECTIONS DIRECTIONS DIRECTIONS Eliquis 5 Eliquis 5 No Eliquis 5 [facility] mg tablet mg tablet mg tablet Communi Take 1 Take 1 Take 1 ty tablet BID tablet BID tablet BID Hospita PO PO PO l Clinics hydrochloro hydrochloro No 1 Q1D hydrochlor [facility] thiazide thiazide othiazide Co mmuni 12.5 mg 12.5 mg 12.5 mg ty tablet Take tablet Take tablet Hospita 1 tablet 1 tablet Take 1 l every day every day tablet Cli nics by oral by oral every day route. route. by oral route. hydrocodone hydrocodone No 1 Q6H hydrocodon [facility] 10 10 e 10 Communi mg-acetamin mg-acetamin [...] by oral route. potassium potassium No potassium [facility] chloride ER chloride ER chloride Communi 20 mEq 20 mEq ER 20 mEq ty tablet,exte tablet,exte tablet,ext Hospita nded nded ended l release(par release(par release(pa Clinics t/cryst) t/cryst) rt/cryst) Take 1 Take 1 Take 1 tablet tablet tablet daily by daily by daily by mouth mouth mouth simvastatin simvastatin No simvastati [facility] 40 mg 40 mg n 40 mg Communi tablet TAKE tablet TAKE tablet ty 1 TABLET BY 1 TABLET BY TAKE 1 Hospita MOUTH EVERY MOUTH EVERY TABLET BY l DAY AT DAY AT MOUTH Clinics NIGHT NIGHT EVERY DAY AT NIGHT trazodone trazodone No trazodone [facility] 50 mg 50 mg 50 mg Communi tablet TAKE tablet TAKE tablet ty 1 TABLET BY 1 TABLET BY TAKE 1 Hospita MOUTH MOUTH TABLET BY l EVERYDAY AT EVERYDAY AT MOUTH Clinics BEDTIME BEDTIME EVERYDAY AT BEDTIME colestipol colestipol No colestipol [facility] 1 gram 1 gram 1 gram Communi tablet tablet tablet ty PLEASE SEE PLEASE SEE PLEASE SEE Hospita ATTACHED ATTACHED ATTACHED l FOR FOR FOR Clinics DETAILED DETAILED DETAILED DIRECTIONS DIRECTIONS DIRECTIONS Vital Signs Vital Name Observation Time Observation Value Comments Source BP Diastolic 2022-07-17 00:00:00 84 mm[Hg] [facility] Height 2022-07-17 00:00:00 73 [in_i] [facility] BMI (Body Mass 2022-07-17 00:00:00 38 kg/m2 [facility] s BP Systolic 2022-07-17 00:00:00 140 mm[Hg] [facility] s Body Weight 2022-07-17 00:00:00 4608 [oz_av] [facility] s height 2022-07-09 09:45:00 71 [in_i] Common [facility] weight 2022-07-09 09:45:00 285.2 [lb_av] Common [facility] temperature 2022-07-09 09:45:00 97.6 [degF] Common [facility] bmi 2022-07-09 09:45:00 39.77 kg/m2 [facility] oximetry 2022-07-09 09:45:00 95 % [facility] Center respiratory rate 2022-07-09 09:45:00 16 /min Comm on [facility] blood pressure 2022-07-09 09:45:00 154 mm[Hg] Common [facility] blood pressure 2022-07-09 09:45:00 74 mm[Hg] Common [facility] BP Diastolic 2022-06-17 00:00:00 84 mm[Hg] [facility] Height 2022-06-17 00:00:00 73 [in_i] [facility] s BMI (Body Mass 2022-06-17 00:00:00 37.7 kg/m2 [facility]) [facility] s BP Systolic 2022-06-17 00:00:00 154 mm[Hg] [facility] s Body Weight 2022-06-17 00:00:00 4576 [oz_av] [facility] s BP Diastolic 2022-04-17 00:00:00 80 mm[Hg] [facility] Height 2022-04-17 00:00:00 73 [in_i] [facility] s BMI (Body Mass 2022-04-17 00:00:00 37.7 kg/m2 [facility]) [facility] s BP Systolic 2022-04-17 00:00:00 124 mm[Hg] [facility] s Body Weight 2022-04-17 00:00:00 4576 [oz_av] [facility] height 2022-04-16 15:00:00 71 [in_i] [facility] weight 2022-04-16 15:00:00 280 [lb_av] [facility] temperature 2022-04-16 15:00:00 97.6 [degF] [facility] bmi 2022-04-16 15:00:00 39.05 kg/m2 [facility] oximetry 2022-04-16 15:00:00 96 % Common S [facility] respiratory rate 2022-04-16 15:00:00 18 /min Comm on [facility] blood pressure 2022-04-16 15:00:00 139 mm[Hg] Common [facility] blood pressure 2022-04-16 15:00:00 88 mm[Hg] Common [facility] BP Diastolic 2022-03-17 00:00:00 78 mm[Hg] [facility] s Height 2022-03-17 00:00:00 73 [in_i] [facility] s BMI (Body Mass 2022-03-17 00:00:00 39.8 kg/m2 [facility]) [facility] s BP Systolic 2022-03-17 00:00:00 142 mm[Hg] [facility] s Body Weight 2022-03-17 00:00:00 4824 [oz_av] [facility] s Procedures Procedure Date / Time Performed Performing Clinician Sour e Appendectomy [facility] Total Knee Replacement [facility] Tonsillectomy [facility] Vasectomy [facility] Plan of Care Planned Activity Planned Date Details Comments Source Diagnostic Test 2022-03-17 CMP, serum or [facility] Comm unity Pending 00:00:00 plasma [code = Hospital Clin ics CMP, serum or plasma] Diagnostic Test 2022-03-17 CBC w/ auto diff [facility] Pending 00:00:00 [code = CBC w/ Hospital Clin ics auto diff] Diagnostic Test 2022-03-17 lipid panel, [facility] Commu nity Pending 00:00:00 serum [code = Hospital [facility] lipid panel, serum] Diagnostic Test 2022-03-17 HbA1c (hemoglobin [facility] Pending 00:00:00 A1c), blood [code Hospital C linics = HbA1c (hemoglobin A1c), blood] Diagnostic Test 2022-03-17 TSH, serum or [facility] Comm unity Pending 00:00:00 plasma [code = Hospital Clin ics TSH, serum or plasma] Future Appointment 2022-10-13 [facility] [address]; [facility], [place] [address] Encounters Start End Encounter Admission Attending Care Care Encounter Source Date/Time Date/Time Type Type Clinicians Facility Department ID 2022-07-02 Outpatient ELIOT RAMIREZ [facility] [id number] 02 Common 16:38:01 DUNCAN [id number] [facility] 2022-06-17 Outpatient ELIOT RAMIREZ [facility] [id number] Common 11:02:02 DUNCAN [id number] [facility] 2022-04-[address] [facility] [id number] 02 Common 14:36:03 DUNCAN [id number] [facility] 2022-07-30 2022-07-30 Outpatient ERCASANDRAON_R [facility] [id number] [place] 00:00:00 00:00:00 0215 Commun i ty Hospita l [facility] 2022-07-17 2022-07-17 Duncan [facility] - [facility] 00:00:00 00:00:00 [facility] DO: [address] Hospit [facility], HOSPITAL Clinic s [place], [place] CLINIC, [address] JAMES , Ph. 2022-07-09 2022-07-09 OFFICE [facility] [id number] Co mmon 00:00:00 00:00:00 VISIT EST Spir it PT LEVEL [address] [place] [address] 2022-06-17 2022-06-17 Outpatient ERICKSON_R [facility] [id number] [place] 00:00:00 00:00:00 0103 Commun i ty Hospita l Clinics 2022-06-17 2022-06-17 Outpatient ERICKSON_R [facility] [id number] [place] 00:00:00 00:00:00 0202 Commun i ty Hospita l Clinics 2022-06-17 2022-06-17 Duncan [facility] [place] - [place] [facility] 00:00:00 00:00:00 [facility] ty DO: [address] Hospit a [facility], HOSPITAL [place], [place] CLINIC, [address] JAMES , Ph. 2022-05-11 2022-05-11 Outpatient ERICKSON_R [facility] [id number] [place] 00:00:00 00:00:00 1127 Commun i ty Hospita l Clinics 2022-04-17 2022-04-17 Outpatient ERICKSON_R [facility] [id number] [place] 00:00:00 00:00:00 1103 Commun i ty Hospita l Clinics 2022-04-17 2022-04-17 Duncan [facility] [place] - [place] [id number] [facility] 00:00:00 00:00:00 [facility] - DO: [address] Hospit [facility], HOSPITAL [place], [place] CLINIC, [address] JAMES , Ph. 2022-04-16 2022-04-16 OFFICE [facility] [id number] Co mmon 00:00:00 00:00:00 VISIT [facility] PT LEVEL 3 [facility] 2022-03-21 2022-03-21 Outpatient ERICKSON_R [facility] [id number] [place] 00:00:00 00:00:00 1007 Commun i ty Hospita l Clinics 2022-03-18 2022-03-18 Outpatient ERICKSON_R [facility] [id number] [place] 00:00:00 00:00:00 1004 Commun i ty Hospita l Clinics 2022-03-17 2022-03-17 Outpatient ERICKSON_R [facility] [id number] [place] 00:00:00 00:00:00 1003 Commun i ty Hospita l Clinics 2022-03-17 2022-03-17 [facility] - [facility] [id number] 00:00:00 00:00:00 [facility]: [address] Hospit a [facility] [address], HOSPITAL Clinic s [place], [facility], [address] JAMES , Ph. [phone] Results This patient has no known results.
[2022-08-15 11:51] LABS: Absolute Lymphocytes (CBC) 1.8 K/uL (0.7-4.9); Hematocrit 43.1 % (39.6-49.0); Lymphocytes % 21.2 % (15.3-44.8); MCV 92.5 fL (80-100); MPV 6.8 fL (7.6-11.3); RBC Red Blood Cell Count 4.66 M/uL (4.33-5.43)
[2022-08-15 11:53] LABS: Protime INR 1.57
[2022-08-15 12:09] LABS: Albumin 3.2 g/dL (3.4-5.0); Bilirubin Total 0.8 mg/dL (0.2-1.0); Potassium 3.5 mmol/L (3.5-5.1); Protein, Total 7.8 g/dL (6.4-8.2)
--- NOTE | 2022-08-15 12:27 | RAD REPORT ---
EXAM DESCRIPTION: US - Extremity Venous Uni Ltd - 08/15/2022 12:10 pm CLINICAL HISTORY: Swelling COMPARISON: None. TECHNIQUE: Real-time sonographic evaluation of the right lower extremity deep venous system was perf ormed. FINDINGS: Normal compressibility, flow augmentation, phasic flow and spontaneous flow is identified in the right lower extremity deep venous system. No intraluminal filling defects seen. IMPRESSION: No DVT in the right lower extremity.
[2022-08-15] MEDS ORDERED: Levofloxacin500mg IV 500 MG/100 ML BAG IV ONE (12:58)
--- NOTE | 2022-08-15 13:21 | EDPHYS ---
Physician Documentation [facility] Name: Tomas Delaney Age: 77 yrs Sex: Male : 1945 Arrival Date: 08/15/2022 Time: 10:54 Bed 19 Private MD: ED Physician Hammad Fields HPI: 08/15 11:02 This 77 yrs old Male presents to ER via Wheelchair with complaints of Leg Swelling. jh7 11:02 The patient presents with swelling. The complaints affect the right calf and right jh7 shah. Onset: The symptoms/episode began/occurred 4 week(s) ago. 77-year-old male sent by Dr. Snider for failed outpatient treatment for cellulitis of the R lower leg. The patient reports that he was seen for this over a week ago and hospitalized for 4 days. He is currently taking Levaquin 500 mg through his PICC line once daily and is on Eliquis 5 mg for a DVT in the left leg. He denies pain at this time, but reports that the swelling has increased.. Historical: - Allergies: 11:06 Neosporin ([id number]); jl7 - Home Meds: 11:06 Eliquis 5 mg Oral tab 1 tab 2 times per day [Active]; hydrocodone-acetaminophen 10-325 jl7 mg Oral tab [Active]; losartan-hydrochlorothiazide 100-12.5 mg Oral tab 1 tab once daily [Active]; trazodone 50 mg Oral tab 1 tab once daily [Active]; Furosemide Oral [Active]; potassium chloride 20 mEq Oral cpER 1 tab once daily [Active]; 13:59 colestipol Oral 2 times per day [Active]; ko1 - PMHx: 11:06 Atrial fibrillation; DVT; Hypercholesterolemia; Hypertensive disorder; ibs; PROSTATE CA;jl7 - Immunization history:: Client reports receiving the 2nd dose of the Covid vaccine. - Social history:: Smoking status: Patient denies any tobacco usage or history of. ROS: 11:02 Constitutional: Negative for fever, chills, and weight loss, Eyes: Negative for injury, jh7 pain, redness, and discharge, ENT: Negative for injury, pain, and discharge, Neck: Negative for injury, pain, and swelling, Cardiovascular: Negative for chest pain, palpitations, and edema, Respiratory: Negative for shortness of breath, cough, wheezing, and pleuritic chest pain, Abdomen/GI: Negative for abdominal pain, nausea, vomiting, diarrhea, and constipation, Back: Negative for injury and pain, Neuro: Negative for headache, weakness, numbness, tingling, and seizure. 11:02 MS/extremity: Positive for swelling, of the right shah and right calf. 11:02 Skin: Positive for cellulitis, swelling, ulceration, of the right shah and right calf. 11:02 All other systems are negative. Exam: 11:02 Constitutional: This is a well developed, well nourished patient who is awake, alert, jh7 and in no acute distress. Head/Face: Normocephalic, atraumatic. Eyes: Pupils equal round and reactive to light, extra-ocular motions intact. Lids and lashes normal. Conjunctiva and sclera are non-icteric and not injected. Cornea within normal limits. Periorbital areas with no swelling, redness, or edema. Neck: Trachea midline, no thyromegaly or masses palpated, and no cervical lymphadenopathy. Supple, full range of motion without nuchal rigidity, or vertebral point tenderness. No Meningismus. Cardiovascular: Regular rate and rhythm with a normal S1 and S2. No gallops, murmurs, or rubs. Normal PMI, no JVD. No pulse deficits. Respiratory: Lungs have equal breath sounds bilaterally, clear to auscultation and percussion. No rales, rhonchi or wheezes noted. No increased work of breathing, no retractions or nasal flaring. Abdomen/GI: Soft, non-tender, with normal bowel sounds. No distension or tympany. No guarding or rebound. No evidence of tenderness throughout. Back: No spinal tenderness. No costovertebral tenderness. Full range of motion. Neuro: Awake and alert, GCS 15, oriented to person, place, time, and situation. Motor strength 5/5 in all extremities. Sensory grossly intact. Normal gait. 11:02 Skin: cellulitis, that is moderate, confluent, on the right shah and right calf, lesion(s), noted, and can be described as ulcerated, located on the right shah. Vital Signs: 11:04 BP 102 / 52; Pulse 77; Resp 15; Temp 98.2; Pulse Ox 98% ; Pain 0/10; jl7 11:11 Weight 122.02 kg; Height 6 ft. 1 in. (185.42 cm); Pain 0/10; 7 13:47 BP 115 / 56; Pulse 80; Resp 16; Pulse Ox 99% ; ko1 11:11 Body Mass Index 35.49 (122.02 kg, 185.42 cm) [facility] MDM: 11:01 Patient medically screened. [facility] 12:45 Management of patient was discussed with the following: Electric Sealing Machine Operator: Dr. Snider, General [facility] Surgery. Consulted with Dr. Snider regarding lab results and patient presentation. Also provided a picture of the patient's current cellulitis/lymphedema. He stated that we could administer Levaquin 500 mg IV (he had not yet had his home dose) and to have the patient follow-up with him in his office this coming Thursday. Patient and spouse informed of the plan of care.. I considered the following discharge prescriptions or medication management in the emergency department Medications were administered in the Emergency Department. See MAR. Historians other than the Patient: Spouse/Significant Other: . Care significantly affected by the following chronic conditions: Hypertension, A fib, DVT, lymphedema. Counseling: I had a detailed discussion with the patient and/or guardian regarding: the historical points, exam findings, and any diagnostic results supporting the discharge/admit diagnosis, the need for outpatient follow up, a general surgeon, to return to the emergency department if symptoms worsen or persist or if there are any questions or concerns that arise at home. 12:45 Differential diagnosis: Cellulitis, lymphedema, slow healing wound secondary to [facility] lymphedema, DVT. Data reviewed: vital signs, nurses notes, lab test result(s), radiologic studies, ultrasound. Consideration of Admission/Observation Escalation of care including admission/observation considered. 08/15 11:08 Order name: CMP [facility] 08/15 11:08 Order name: CBC with Diff [facility] 08/15 11:08 Order name: Lactate w/ 2H reflex if indic. [facility] 08/15 11:08 Order name: PT-INR [facility] 08/15 11:08 Order name: PROBNP [facility] 08/15 11:08 Order name: Blood Culture Adult (2) [facility] 08/15 11:09 Order name: US Extremity Venous Unilateral Ltd [facility] 08/15 11:51 Order name: CBC with Automated Diff; Complete Time: 11:58 EDMS 03/03 11:53 Order name: Protime (+INR); Complete Time: 11:58 EDMS 08/15 12:09 Order name: Comprehensive Metabolic Panel; Complete Time: 12:16 EDMS 08/15 12:09 Order name: NT PRO-BNP; Complete Time: 12:16 EDMS 08/15 12:09 Order name: Lactate w/ 2H reflex if indic.; Complete Time: 12:16 EDMS 08/15 12:28 Order name: US; Complete Time: 12:39 EDMS Administered Medications: 12:55 Drug: LevaQUIN (levofloxacin) 500 mg Volume: 100 ml; Route: IVPB; Infused Over: 60 ko1 mins; Site: right antecubital; Disposition: 18:54 Co-signature as Attending Physician, Hammad Fields DO I was immediately available on-site ms3 in the Emergency Department for consultation in the care of the patient. Disposition Summary: 08/15/22 13:21 Discharge Ordered Location: Home [facility] Problem: an ongoing problem [facility] Symptoms: are unchanged [facility] Condition: Stable [facility] Diagnosis - Cellulitis of right lower limb 7 - Lymphedema, not elsewhere classified 7 Followup: [facility] - With: Choco Snider MD - When: 08/19/2022 - Reason: Recheck today's complaints Discharge Instructions: - Discharge Summary Sheet 7 - Cellulitis, Adult 7 - Lymphedema [facility] Forms: - Medication Reconciliation Form [facility] - Thank You Letter [facility] Signatures: Dispatcher [employer] EDMS Sid Rios RN RN jl7 Hammad Fields DO DO ms3 Irais Jackson FNP FNP 7 Margie Massey RN RN ko1
--- NOTE | 2022-08-15 13:21 | ER ---
Nurse's Notes [facility] Name: Tomas Delaney Age: 77 yrs Sex: Male : 1945 Arrival Date: 08/15/2022 Time: 10:54 Bed 19 Private MD: Diagnosis: Cellulitis of right lower limb;Lymphedema, not elsewhere classified Presentation: 08/15 11:04 Chief complaint: Patient states: Cut leg at home 3-4 weeks ago, failed out-patient jl7 treatment with Levaquin for 5 days, Dr. Snider sent to ED, denies pain. Coronavirus screen: At this time, the client does not indicate any symptoms associated with coronavirus-19. Ebola Screen: No symptoms or risks identified at this time. Initial Sepsis Screen: Does the patient meet any 2 criteria? No. Patient's initial sepsis screen is negative. Does the patient have a suspected source of infection? No. Patient's initial sepsis screen is negative. Risk Assessment: Do you want to hurt yourself or someone else? Patient reports no desire to harm self or others. Onset of symptoms is unknown. 11:04 Method Of Arrival: Wheelchair jl7 11:04 Acuity: CONNOR 3 jl7 Triage Assessment: 11:06 General: Appears in no apparent distress. uncomfortable, Behavior is calm, cooperative, jl7 appropriate for age. Pain: Denies pain. Historical: - Allergies: 11:06 Neosporin ([id number]); jl7 - Home Meds: 11:06 Eliquis 5 mg Oral tab 1 tab 2 times per day [Active]; hydrocodone-acetaminophen 10-325 jl7 mg Oral tab [Active]; losartan-hydrochlorothiazide 100-12.5 mg Oral tab 1 tab once daily [Active]; trazodone 50 mg Oral tab 1 tab once daily [Active]; Furosemide Oral [Active]; potassium chloride 20 mEq Oral cpER 1 tab once daily [Active]; 13:59 colestipol Oral 2 times per day [Active]; ko1 - PMHx: 11:06 Atrial fibrillation; DVT; Hypercholesterolemia; Hypertensive disorder; ibs; PROSTATE CA;jl7 - Immunization history:: Client reports receiving the 2nd dose of the Covid vaccine. - Social history:: Smoking status: Patient denies any tobacco usage or history of. Screenin:20 [facility] ED Fall Risk Assessment (Adult) History of falling in the last 3 months, ko1 including since admission No falls in past 3 months (0 pts) Confusion or Disorientation No (0 pts) Intoxicated or Sedated No (0 pts) Impaired Gait Yes (1 pt) Mobility Assist Device Used Yes (1 pt) Altered Elimination No (0 pt) Score/Fall Risk Level 0 - 2 = Low Risk Oriented to surroundings, Maintained a safe environment, Educated pt \T\ family on fall prevention, incl call for assistance when getting out of bed, Assessed \T\ reinforced patient's understanding of fall precautions, Provided non-skid footwear, Hourly rounding (assess needs \T\ fall precautionary measures) done, Used ambulatory aids as needed (educated on \T\ assisted with), Used gait belt as appropriate. Abuse screen: Denies threats or abuse. Denies injuries from another. Nutritional screening: No deficits noted. Tuberculosis screening: No symptoms or risk factors identified. Assessment: 11:20 General: Appears in no apparent distress. uncomfortable, Behavior is calm, cooperative, ko1 appropriate for age. Pain: Complains of pain in right shah and right calf. Neuro: No deficits noted. Cardiovascular: No deficits noted. Respiratory: No deficits noted. GI: No deficits noted. : No deficits noted. EENT: No deficits noted. Derm: Wound noted right shah and right calf. Musculoskeletal: Swelling present in right calf. Vital Signs: 11:04 BP 102 / 52; Pulse 77; Resp 15; Temp 98.2; Pulse Ox 98% ; Pain 0/10; jl7 11:11 Weight 122.02 kg; Height 6 ft. 1 in. (185.42 cm); Pain 0/10; jl7 13:47 BP 115 / 56; Pulse 80; Resp 16; Pulse Ox 99% ; ko1 11:11 Body Mass Index 35.49 (122.02 kg, 185.42 cm) 7 ED Course: 10:54 Patient arrived in ED. am2 11:01 Irais Jackson FNP is PHCP. jh7 11:01 Hammad Fields DO is Attending Physician. jh7 11:06 Triage completed. jl7 11:08 Margie Massey, JEANNA is Primary Nurse. ko1 11:11 Arm band placed on right wrist. jl7 11:15 Inserted saline lock: 20 gauge in right antecubital area, using aseptic technique. ko1 Blood collected. 11:20 Patient has correct armband on for positive identification. Bed in low position. Call ko1 light in reach. Side rails up X2. Client placed on continuous cardiac and pulse oximetry monitoring. NIBP monitoring applied. legal technician on. 11:20 No provider procedures requiring assistance completed. ko1 11:39 PROBNP Sent. ko1 11:39 PT-INR Sent. ko1 11:39 Lactate w/ 2H reflex if indic. Sent. ko1 11:39 CBC with Diff Sent. ko1 11:39 CMP Sent. ko1 11:39 Blood Culture Adult (2) Sent. ko1 11:48 Accessed PICC line. using ,sterile technique, per hospital protocol. Clean \T\ dry. ko1 Dressing intact. No blood return. Flushes easily. 13:18 Choco Snider MD is Referral Physician. [facility] 14:00 IV discontinued, intact, bleeding controlled, No redness/swelling at site. Pressure ko1 dressing applied. Administered Medications: 12:55 Drug: LevaQUIN (levofloxacin) 500 mg Volume: 100 ml; Route: IVPB; Infused Over: 60 ko1 mins; Site: right antecubital; Medication: 13:59 VIS not applicable for this client. ko1 Outcome: 13:21 Discharge ordered by . [facility] 13:47 Discharged to home via wheelchair, with family. ko1 13:47 Condition: stable 13:47 Discharge instructions given to patient, family, Instructed on discharge instructions, follow up and referral plans. Demonstrated understanding of instructions, follow-up care, medications, wound care. 14:05 Patient left the ED. ko1 Signatures: Sid Rios, RN RN 7 Ashley Hernandes Jennifer, BENEFITS MANAGER BENEFITS MANAGER 7 Margie Massey, RN RN ko1
[2022-08-15 14:38] VITALS: TEMP 98.2
[2022-08-15 14:39] VITALS: BP 115/56; O2SAT 99
== END 2022-08-15 14:05 | disposition home or self-care (01) ==
LOC: ER 10:51
DX: L03.115 Cellulitis of right lower limb (principal); I89.0 Lymphedema, not elsewhere classified; I10 Essential (primary) hypertension; Z86.718 Personal history of other venous thrombosis and embolism; Z79.01 Long term (current) use of anticoagulants; Z88.3 Allergy status to other anti-infective agents
CPT/HCPCS: 36415; 80053; 83605; 83880; 85025; 85610; 87040; 93971; 96374; 99284